=== PATIENT | female | born 1990 | race Caucasian/White ===

== ENCOUNTER 2016-10-13 12:33 | Inpatient (IN) | payer MEDICARE, OTHER ==
[2016-10-13 13:41] VITALS: BMI 30.1
--- NOTE | 2016-10-13 16:03 | HP ---
COWS - Scale Resting Pulse: 2= [place] 101-120 Sweatin=Flushed/Facial Moisture Restless Observation: 3= Extraneous Movement Pupil Size: 2= Moderately Dilated Bone or Joint Aches: 2= Severe Diffuse Aches Runny Nose/ Eye Tearin= Runny Nose/Eyes GI Upset > 30mins: 3= Vomiting/Diarrhea Tremor Observation: 2= Slight Tremor Visible Yawning Observation: 2= >3x During Session Anxiety or Irritability: 2=Irritable/Anxious Goose Flesh Skin: 0=Smooth Skin COWS Score: 22 Admission ROS S - HPI Chief Complaint: i need help to stop using percocet Allergies/Adverse Reactions: Allergies Allergy/AdvReac Type Severity Reaction Status Date / Time No Known Allergies Allergy Verified 10/13/16 15:20 History of Present Illness: this 26 years old female with percocet dependence,withdrawal symptom,never been in detox before asthma depression insomnia nicotine dependence Exam Limitations: No Limitations - Ebola screening Have you traveled outside of the country in the last 21 days: No Have you been sick,other than usual withdrawal symptoms: No - Review of Systems Constitutional: Chills, Loss of Appetite, Malaise, Night Sweats, Changes in sleep EENT: reports: Tearing, Nose Congestion Respiratory: reports: No Symptoms reported Cardiac: reports: Palpitations GI: reports: Diarrhea, Nausea, Poor Appetite : reports: No Symptoms Reported Musculoskeletal: reports: Joint Pain, Muscle Pain, Muscle Weakness, Joint Stiffness Integumentary: reports: Dryness Neuro: reports: Headache, Tremors Endocrine: reports: No Symptoms Reported Hematology: reports: No Symptoms Reported Psychiatric: reports: No Sypmtoms Reported, Judgement Intact, Mood/Affect Appropiate, Orientated x3, Depressed Patient History - Patient Medical History Hx Anemia: No Hx Asthma: Yes (on albuterol inhaler) Hx Chronic Obstructive Pulmonary Disease (COPD): No Hx Cancer: No Hx Cardiac Disorders: No Hx Congestive Heart Failure: No Hx Hypertension: No Hx Hypercholesterolemia: No Hx Pacemaker: No HX Cerebrovascular Accident: No Hx Seizures: No Hx Dementia: No Hx Diabetes: No Hx Gastrointestinal Disorders: No Hx Liver Disease: No Hx Genitourinary Disorders: No Hx Sexually Transmitted Disorders: No Hx Renal Disease (ESRD): No Hx Thyroid Disease: No Hx Human Immunodeficiency Virus (HIV): No (last 2015 negative) Hx Hepatitis C: No Hx Depression: Yes Hx Suicide Attempt: No Hx Bipolar Disorder: No Hx Schizophrenia: No Other Medical History: no suicidal,no homicidal - Patient Surgical History Past Surgical History: No Hx Neurologic Surgery: No Hx Cataract Extraction: No Hx Cardiac Surgery: No Hx Lung Surgery: No Hx Breast Surgery: Yes (breast reductionin 2016) Hx Breast Biopsy: No Hx Abdominal Surgery: No Hx Appendectomy: No Hx Cholecystectomy: No Hx Genitourinary Surgery: No Hx Section: No Hx Orthopedic Surgery: No Anesthesia Reaction: No - PPD History Previous Implant?: Yes Documented Results: Negative w/o proof Implanted On Prior R Admission?: No PPD to be Administered?: Yes - Reproductive History Last Menstrual Period: 09/16/16 Patient : No - Smoking Cessation Smoking history: Current every day smoker Have you smoked in the past 12 months: Yes Aproximately how many cigarettes per day: 2 Hx Chewing Tobacco Use: No Initiated information on smoking cessation: Yes 'Breaking Loose' booklet given: 10/13/16 - Substance & Tx. History Hx Alcohol Use: No Hx Substance Use: Yes Substance Use Type: Opiates Hx Substance Use Treatment: No - Substances Abused Percocet Route: Oral Frequency: Daily Amount used: 10 tabs. (10 mg.) Age of first use: 25 Date of Last Use: 10/13/16 Family Disease History - Family Disease History Family History: Denies Admission Physical Exam S - Vital Signs Vital Signs: Vital Signs - 24 hr 10/13/16 13:37 Temperature 97.0 F L Pulse Rate 111 H Respiratory 20 Rate Blood Pressure 112/82 - Physical General Appearance: Yes: Tremorous, Irritable, Sweating, Anxious HEENTM: Yes: Hearing grossly Normal, ZAY, Pharynx Normal Respiratory: Yes: Lungs Clear, Normal Breath Sounds, No Respiratory Distress Neck: Yes: Within Normal Limits, Supple, Trachea in good position Breast: Yes: Breast Exam Deferred Cardiology: Yes: Tachycardia Abdominal: Yes: Within Normal Limits, Normal Bowel Sounds, Non Tender, Flat, Soft Genitourinary: Yes: Within Normal Limits Back: Yes: Muscle Spasm Musculoskeletal: Yes: Back pain, Joint Stiffness, Muscle Pain, Muscle weakness Extremities: Yes: Tremors Neurological: Yes: washcloth folder II-XII NML intact, Fully Oriented, Alert, Motor Strength 5/5 Integumentary: Yes: Dry Lymphatic: Yes: Within Normal Limits - Diagnostic (1) Opioid dependence with withdrawal Current Visit: Yes Status: Acute (2) Asthma Current Visit: Yes Status: Acute (3) Depression Current Visit: Yes Status: Acute (4) Insomnia Current Visit: Yes Status: Acute (5) Nicotine dependence Current Visit: Yes Status: Acute Cleared for Admission [facility] - Detox or Rehab [facility] Level of Care: Medically Managed Detox Regimen/Protocol: Methadone [facility] Breath Alcohol Content Breath Alcohol Content: 0 Urine Pregancy Test - Result Urine Test Results: Negative- NO Line Present Urine Drug Screen - Results Drug Screen Negative: No Urine Drug Screen Results: OXY-Oxycodone
[2016-10-13] MEDS ORDERED: MAG HYDROX/AL HYDROX/SIMETH 30 ML UNIT-DOSE CUP PO PRN (16:12)
[2016-10-13] MEDS ORDERED: P-EPHED 60MG/TRIPROLIDI 2.5MG TABLET PO PRN (16:12)
[2016-10-13] MEDS ORDERED: guaiFENesin/D-METHORPHAN HB 10 ML UNIT-DOSE CUPS PO PRN (16:12)
[2016-10-13] MEDS ORDERED: IBUPROFEN 400 MG TABLET (FP) PO PRN (16:12)
[2016-10-13] MEDS ORDERED: MAGNESIUM HYDROX 2400MG/30ML ORAL SUSPENSION 30 ML CUP PO PRN (16:12)
[2016-10-13] MEDS ORDERED: MAGNESIUM CITRATE 300 ML BOTTLE PO PRN (16:12)
[2016-10-13] MEDS ORDERED: MENTHOL/PHENOL 1 EACH UD MM PRN (16:12)
[2016-10-13] MEDS ORDERED: LOPERAMIDE HCL 2 MG CAPSULE PO PRN (16:12)
[2016-10-13] MEDS ORDERED: ACETAMINOPHEN 325 MG TABLET (FP) PO PRN (16:12)
[2016-10-13] MEDS ORDERED: METHADONE HCL 10 MG TABLET (FOR DETOX USE ONLY) PO ONE ×2 (16:45→23:00)
[2016-10-13] MEDS: diazePAM 5 MG TABLET PO PRN ×2 (17:05→20:57)
[2016-10-13 18:53] LABS: URINE APPEARANCE CLEAR; URINE BILIRUBIN NEGATIVE (NEGATIVE); URINE BLOOD NEGATIVE (NEGATIVE); URINE COLOR LTYELLOW; URINE GLUCOSE (UA) NEGATIVE (NEGATIVE); URINE KETONE NEGATIVE (NEGATIVE); URINE LEUK ESTERASE NEGATIVE (NEGATIVE); URINE NITRITE NEGATIVE (NEGATIVE); URINE PROTEIN NEGATIVE (NEGATIVE); URINE UROBILINOGEN NEGATIVE E.U./dl (0.2-1.0)
[2016-10-13] MEDS: cloNIDine HCL 0.1 MG TABLET PO SCH (22:19)
[2016-10-13] MEDS: THIAMINE HCL 100 MG TABLET (FP) PO SCH (22:19)
[2016-10-13] MEDS: CYCLOBENZAPRINE HCL 10 MG TABLET (FP) PO PRN (22:19)
[2016-10-13] MEDS: diphenhydrAMINE HCL 50 MG CAPSULE PO PRN (22:19)
[2016-10-14] MEDS: diazePAM 5 MG TABLET PO PRN ×2 (08:50→19:41)
[2016-10-14] MEDS ORDERED: METHADONE HCL 10 MG TABLET (FOR DETOX USE ONLY) PO ONE (10:00)
[2016-10-14 10:11] LABS: MCH 31.1 pg (25.7-33.7); MCHC 33.1 g/dl (32.0-36.0); MEAN CELL VOLUME 94.2 fl (80-96); MEAN PLT VOLUME 9.3 fl (7.5-11.1); PLATELET COUNT 304 K/MM3 (134-434); RDW 12.5 % (11.6-15.6)
[2016-10-14] MEDS: cloNIDine HCL 0.1 MG TABLET PO SCH ×2 (10:19→22:13)
[2016-10-14] MEDS: PRENATAL VITAMINS W/ FOLIC ACID TABLET (FP) PO SCH (10:19)
--- NOTE | 2016-10-14 10:24 | EKG ---
Test Reason : Blood Pressure : / mmHG Vent. Rate : 085 BPM Atrial Rate : 085 BPM P-R Int : 142 ms QRS Dur : 088 ms QT Int : 370 ms P-R-T Axes : 017 056 007 degrees QTc Int : 440 ms NORMAL SINUS RHYTHM WITH SINUS ARRHYTHMIA NONSPECIFIC ST ABNORMALITY NO PREVIOUS ECGS AVAILABLE Confirmed by TAWANA MCKEON MD ([id number]) on 10/14/2016 10:24:01 AM Referred By: Confirmed By:TAWANA MCKEON MD
[2016-10-14 12:04] LABS: ALBUMIN 3.7 g/dl (3.4-5.0); ALK PHOS 71 U/L (45-117); ANION GAP 9 (8-16); BILIRUBIN,TOTAL 0.4 mg/dL (0.2-1.0); CALCIUM 9.1 mg/dL (8.5-10.1); CO2 26 mmol/L (21-32); CREATININE 0.8 mg/dL (0.55-1.02); GLUCOSE,RANDOM 95 mg/dL (74-106); SGOT/AST 14 U/L (15-37); SGPT/ALT 20 U/L (12-78); TOT PROT 7.2 g/dl (6.4-8.2)
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
--- NOTE | 2016-10-14 13:51 | PN ---
S COWS - Scale Resting Pulse: 0= [place] 80 or Below Sweatin= Chills/Flushing Restless Observation: 3= Extraneous Movement Pupil Size: 1= Pupils >than Normal Bone or Joint Aches: 2= Severe Diffuse Aches Runny Nose/ Eye Tearin= Runny Nose/Eyes GI Upset > 30mins: 3= Vomiting/Diarrhea Tremor Observation of Outstretched Hands: 2= Slight Tremor Visible Yawning Observation: 1= 1-2x During Session Anxiety or Irritability: 2=Irritable/Anxious Goose Flesh Skin: 0=Smooth Skin COWS Score: 17 S Progress Note (SOAP) Subjective: ALERT,IRRITABLE,ANXIOUS,INTERRUPTED SLEEP,TREMOR,PAIN IN THE BODY AND ABCK Objective: 10/14/16 13:49 Vital Signs Temperature 96.3 F L 10/14/16 10:30 Pulse Rate 81 10/14/16 10:30 Respiratory Rate 18 10/14/16 10:30 Blood Pressure 105/68 10/14/16 10:30 O2 Sat by Pulse Oximetry (%) EKG NSR WITH SINUS ARRHYTHMIA NORMAL ECG Laboratory Last Values WBC 11.0 K/mm3 (4.0-10.0) H 10/14/16 06:00 RBC 4.68 M/mm3 (3.60-5.2) 10/14/16 06:00 Hgb 14.6 GM/dL (10.7-15.3) 10/14/16 06:00 Hct 44.1 % (32.4-45.2) 10/14/16 06:00 MCV 94.2 fl (80-96) 10/14/16 06:00 MCHC 33.1 g/dl (32.0-36.0) 10/14/16 06:00 RDW 12.5 % (11.6-15.6) 10/14/16 06:00 Plt Count 304 K/MM3 (134-434) 10/14/16 06:00 MPV 9.3 fl (7.5-11.1) 10/14/16 06:00 Sodium 139 mmol/L (136-145) 10/14/16 06:00 Potassium 4.1 mmol/L (3.5-5.1) 10/14/16 06:00 Chloride 104 mmol/L (98-107) 10/14/16 06:00 Carbon Dioxide 26 mmol/L (21-32) 10/14/16 06:00 Anion Gap 9 (8-16) 10/14/16 06:00 BUN 17 mg/dL (7-18) 10/14/16 06:00 Creatinine 0.8 mg/dL (0.55-1.02) 10/14/16 06:00 Creat Clearance w eGFR > 60 (>60) 10/14/16 06:00 Random Glucose 95 mg/dL (74-106) 10/14/16 06:00 Calcium 9.1 mg/dL (8.5-10.1) 10/14/16 06:00 Total Bilirubin 0.4 mg/dL (0.2-1.0) 10/14/16 06:00 AST 14 U/L (15-37) L 10/14/16 06:00 ALT 20 U/L (12-78) 10/14/16 06:00 Alkaline Phosphatase 71 U/L (45-117) 10/14/16 06:00 Total Protein 7.2 g/dl (6.4-8.2) 10/14/16 06:00 Albumin 3.7 g/dl (3.4-5.0) 10/14/16 06:00 Urine Color Ltyellow 10/13/16 18:00 Urine Appearance Clear 10/13/16 18:00 Urine pH 6.0 (5.0-8.0) 10/13/16 18:00 Ur Specific [place] 1.027 (1.001-1.035) 10/13/16 18:00 Urine Protein Negative (NEGATIVE) 10/13/16 18:00 Urine Glucose (UA) Negative (NEGATIVE) 10/13/16 18:00 Urine Ketones Negative (NEGATIVE) 10/13/16 18:00 Urine Blood Negative (NEGATIVE) 10/13/16 18:00 Urine Nitrite Negative (NEGATIVE) 10/13/16 18:00 Urine Bilirubin Negative (NEGATIVE) 10/13/16 18:00 Urine Urobilinogen Negative E.U./dl (0.2-1.0) 10/13/16 18:00 Ur Leukocyte Esterase Negative (NEGATIVE) 10/13/16 18:00 RPR Titer Nonreactive (NONREACTIVE) 10/14/16 06:00 Assessment: 10/14/16 13:50 WITHDRAWAL SYMPTOM Plan: CONTINUE DETOX,ENCOURAGE ORAL FLUID
[2016-10-14] MEDS: MIRTAZAPINE 15 MG TABLET (FP) PO SCH (22:13)
[2016-10-14] MEDS: THIAMINE HCL 100 MG TABLET (FP) PO SCH (22:14)
[2016-10-15] MEDS: diphenhydrAMINE HCL 50 MG CAPSULE PO PRN (01:04)
[2016-10-15] MEDS: diazePAM 5 MG TABLET PO PRN ×4 (05:37→22:19)
[2016-10-15] MEDS ORDERED: METHADONE HCL 5 MG TABLET (FOR DETOX USE ONLY) PO ONE (10:00)
[2016-10-15] MEDS: cloNIDine HCL 0.1 MG TABLET PO SCH ×2 (10:36→22:18)
[2016-10-15] MEDS: PRENATAL VITAMINS W/ FOLIC ACID TABLET (FP) PO SCH (10:36)
[2016-10-15] MEDS: SERTRALINE HCL 50 MG TABLET (FP) PO SCH (10:37)
--- NOTE | 2016-10-15 12:39 | PN ---
S COWS - Scale Resting Pulse: 0= [place] 80 or Below Sweatin= Chills/Flushing Restless Observation: 3= Extraneous Movement Pupil Size: 1= Pupils >than Normal Bone or Joint Aches: 2= Severe Diffuse Aches Runny Nose/ Eye Tearin= Runny Nose/Eyes GI Upset > 30mins: 2= Nausea/Diarrhea Tremor Observation of Outstretched Hands: 2= Slight Tremor Visible Yawning Observation: 1= 1-2x During Session Anxiety or Irritability: 2=Irritable/Anxious Goose Flesh Skin: 0=Smooth Skin COWS Score: 16 S Progress Note (SOAP) Subjective: ALERT,IRRITABLE,ANXIOUS,INTERRUPTED SLEEP,TREMOR,PAIN IN THE BODY AND BACK Objective: 10/15/16 12:37 Vital Signs Temperature 97.8 F 10/15/16 10:13 Pulse Rate 81 10/15/16 10:13 Respiratory Rate 16 10/15/16 10:13 Blood Pressure 100/64 10/15/16 10:13 O2 Sat by Pulse Oximetry (%) 10/15/16 12:38 Laboratory Last Values WBC 11.0 K/mm3 (4.0-10.0) H 10/14/16 06:00 RBC 4.68 M/mm3 (3.60-5.2) 10/14/16 06:00 Hgb 14.6 GM/dL (10.7-15.3) 10/14/16 06:00 Hct 44.1 % (32.4-45.2) 10/14/16 06:00 MCV 94.2 fl (80-96) 10/14/16 06:00 MCHC 33.1 g/dl (32.0-36.0) 10/14/16 06:00 RDW 12.5 % (11.6-15.6) 10/14/16 06:00 Plt Count 304 K/MM3 (134-434) 10/14/16 06:00 MPV 9.3 fl (7.5-11.1) 10/14/16 06:00 Sodium 139 mmol/L (136-145) 10/14/16 06:00 Potassium 4.1 mmol/L (3.5-5.1) 10/14/16 06:00 Chloride 104 mmol/L (98-107) 10/14/16 06:00 Carbon Dioxide 26 mmol/L (21-32) 10/14/16 06:00 Anion Gap 9 (8-16) 10/14/16 06:00 BUN 17 mg/dL (7-18) 10/14/16 06:00 Creatinine 0.8 mg/dL (0.55-1.02) 10/14/16 06:00 Creat Clearance w eGFR > 60 (>60) 10/14/16 06:00 Random Glucose 95 mg/dL (74-106) 10/14/16 06:00 Calcium 9.1 mg/dL (8.5-10.1) 10/14/16 06:00 Total Bilirubin 0.4 mg/dL (0.2-1.0) 10/14/16 06:00 AST 14 U/L (15-37) L 10/14/16 06:00 ALT 20 U/L (12-78) 10/14/16 06:00 Alkaline Phosphatase 71 U/L (45-117) 10/14/16 06:00 Total Protein 7.2 g/dl (6.4-8.2) 10/14/16 06:00 Albumin 3.7 g/dl (3.4-5.0) 10/14/16 06:00 Urine Color Ltyellow 10/13/16 18:00 Urine Appearance Clear 10/13/16 18:00 Urine pH 6.0 (5.0-8.0) 10/13/16 18:00 Ur Specific [place] 1.027 (1.001-1.035) 10/13/16 18:00 Urine Protein Negative (NEGATIVE) 10/13/16 18:00 Urine Glucose (UA) Negative (NEGATIVE) 10/13/16 18:00 Urine Ketones Negative (NEGATIVE) 10/13/16 18:00 Urine Blood Negative (NEGATIVE) 10/13/16 18:00 Urine Nitrite Negative (NEGATIVE) 10/13/16 18:00 Urine Bilirubin Negative (NEGATIVE) 10/13/16 18:00 Urine Urobilinogen Negative E.U./dl (0.2-1.0) 10/13/16 18:00 Ur Leukocyte Esterase Negative (NEGATIVE) 10/13/16 18:00 RPR Titer Nonreactive (NONREACTIVE) 10/14/16 06:00 Assessment: 10/15/16 12:38 WITHDRAWAL SYMPTOM Plan: CONTINUE DETOX
[2016-10-15] MEDS: ZOLPIDEM TARTRATE 5 MG TABLET PO PRN (22:18)
[2016-10-15] MEDS: THIAMINE HCL 100 MG TABLET (FP) PO SCH (22:19)
[2016-10-15] MEDS: MIRTAZAPINE 15 MG TABLET (FP) PO SCH (22:19)
[2016-10-16] MEDS ORDERED: METHADONE HCL 5 MG TABLET (FOR DETOX USE ONLY) PO ONE (10:00)
[2016-10-16] MEDS: PRENATAL VITAMINS W/ FOLIC ACID TABLET (FP) PO SCH (10:28)
[2016-10-16] MEDS: cloNIDine HCL 0.1 MG TABLET PO SCH ×2 (10:28→22:11)
[2016-10-16] MEDS: SERTRALINE HCL 50 MG TABLET (FP) PO SCH (10:28)
[2016-10-16] MEDS: diazePAM 5 MG TABLET PO PRN ×2 (10:29→14:27)
[2016-10-16] MEDS ORDERED: BISACODYL 5 MG TABLET.DR (FP) PO ONE (12:15)
--- NOTE | 2016-10-16 16:29 | PN ---
[facility] Progress Note (SOAP) Subjective: Anxious, sweating, interrupted sleep; c/o constipation x 2 days Objective: 10/16/16 16:27 Last Vital Signs Temp Pulse Resp BP Pulse Ox 98.1 F 93 H 18 93/56 10/16/16 14:07 10/16/16 14:07 10/16/16 14:07 10/16/16 14:07 Noted with low blood pressure Laboratory Tests 10/13/16 10/14/16 10/14/16 18:00 06:00 06:00 WBC 11.0 H RBC 4.68 Hgb 14.6 Hct 44.1 MCV 94.2 MCHC 33.1 RDW 12.5 Plt Count 304 MPV 9.3 Sodium 139 Potassium 4.1 Chloride 104 Carbon Dioxide 26 Anion Gap 9 BUN 17 Creatinine 0.8 Creat Clearance w eGFR > 60 Random Glucose 95 Calcium 9.1 Total Bilirubin 0.4 AST 14 L ALT 20 Alkaline Phosphatase 71 Total Protein 7.2 Albumin 3.7 Urine Color Ltyellow Urine Appearance Clear Urine pH 6.0 Ur Specific [place] 1.027 Urine Protein Negative Urine Glucose (UA) Negative Urine Ketones Negative Urine Blood Negative Urine Nitrite Negative Urine Bilirubin Negative Urine Urobilinogen Negative Ur Leukocyte Esterase Negative RPR Titer 10/14/16 06:00 WBC RBC Hgb Hct MCV MCHC RDW Plt Count MPV Sodium Potassium Chloride Carbon Dioxide Anion Gap BUN Creatinine Creat Clearance w eGFR Random Glucose Calcium Total Bilirubin AST ALT Alkaline Phosphatase Total Protein Albumin Urine Color Urine Appearance Urine pH Ur Specific [place] Urine Protein Urine Glucose (UA) Urine Ketones Urine Blood Urine Nitrite Urine Bilirubin Urine Urobilinogen Ur Leukocyte Esterase RPR Titer Nonreactive Labs noted Assessment: 10/16/16 16:27 Withdrawal symptoms Noted with hypotension Plan: Continue detox Hypotension: asymptomatic, encouraged to drink lots of water
[2016-10-16] MEDS: hydrOXYzine PAMOATE 50 MG CAPSULE (FP) PO PRN (18:11)
[2016-10-16] MEDS ORDERED: NICOTINE POLACRILEX 2 MG GUM BUC PRN (18:41)
[2016-10-16] MEDS ORDERED: NICOTINE 21 MG/24 HOURS TOPICAL PATCH TD SCH (18:45)
[2016-10-16] MEDS: NICOTINE 21 MG/24 HOURS TOPICAL PATCH TD SCH (21:08)
[2016-10-16] MEDS: ZOLPIDEM TARTRATE 5 MG TABLET PO PRN (22:10)
[2016-10-16] MEDS: MIRTAZAPINE 15 MG TABLET (FP) PO SCH (22:11)
[2016-10-16] MEDS: CYCLOBENZAPRINE HCL 10 MG TABLET (FP) PO PRN (22:11)
[2016-10-16] MEDS: THIAMINE HCL 100 MG TABLET (FP) PO SCH (22:11)
[2016-10-17] MEDS ORDERED: METHADONE HCL 10 MG TABLET (FOR DETOX USE ONLY) PO ONE (10:00)
[2016-10-17] MEDS: cloNIDine HCL 0.1 MG TABLET PO SCH ×2 (10:20→22:08)
[2016-10-17] MEDS: PRENATAL VITAMINS W/ FOLIC ACID TABLET (FP) PO SCH (10:20)
[2016-10-17] MEDS: hydrOXYzine PAMOATE 50 MG CAPSULE (FP) PO PRN ×3 (10:21→22:08)
[2016-10-17] MEDS: SERTRALINE HCL 50 MG TABLET (FP) PO SCH (10:21)
[2016-10-17] MEDS: NICOTINE 21 MG/24 HOURS TOPICAL PATCH TD SCH (10:23)
[2016-10-17] MEDS ORDERED: COLLOIDAL OATMEAL 1 BAR EACH TP PRN (11:52)
--- NOTE | 2016-10-17 11:56 | PN ---
[facility] Progress Note (SOAP) Subjective: interrupted sleep, rash itchy skin with soap Objective: 10/17/16 11:54 Vital Signs Temperature 98.1 F 10/17/16 10:00 Pulse Rate 81 10/17/16 10:00 Respiratory Rate 20 10/17/16 10:00 Blood Pressure 109/77 10/17/16 10:00 O2 Sat by Pulse Oximetry (%) Laboratory Tests 10/13/16 10/14/16 10/14/16 18:00 06:00 06:00 WBC 11.0 H RBC 4.68 Hgb 14.6 Hct 44.1 MCV 94.2 MCHC 33.1 RDW 12.5 Plt Count 304 MPV 9.3 Sodium 139 Potassium 4.1 Chloride 104 Carbon Dioxide 26 Anion Gap 9 BUN 17 Creatinine 0.8 Creat Clearance w eGFR > 60 Random Glucose 95 Calcium 9.1 Total Bilirubin 0.4 AST 14 L ALT 20 Alkaline Phosphatase 71 Total Protein 7.2 Albumin 3.7 Urine Color Ltyellow Urine Appearance Clear Urine pH 6.0 Ur Specific [place] 1.027 Urine Protein Negative Urine Glucose (UA) Negative Urine Ketones Negative Urine Blood Negative Urine Nitrite Negative Urine Bilirubin Negative Urine Urobilinogen Negative Ur Leukocyte Esterase Negative RPR Titer 10/14/16 06:00 WBC RBC Hgb Hct MCV MCHC RDW Plt Count MPV Sodium Potassium Chloride Carbon Dioxide Anion Gap BUN Creatinine Creat Clearance w eGFR Random Glucose Calcium Total Bilirubin AST ALT Alkaline Phosphatase Total Protein Albumin Urine Color Urine Appearance Urine pH Ur Specific [place] Urine Protein Urine Glucose (UA) Urine Ketones Urine Blood Urine Nitrite Urine Bilirubin Urine Urobilinogen Ur Leukocyte Esterase RPR Titer Nonreactive pt aox3 in nad ambulating Assessment: 10/17/16 11:54 withdrawal sx's alergy to soap Plan: cont.detox increase fluids aveeno soap benadryrl q 6 h d/c in am
[2016-10-17] MEDS: diphenhydrAMINE HCL 25 MG CAPSULE (FP) PO PRN ×2 (12:04→18:53)
[2016-10-17] MEDS: MIRTAZAPINE 15 MG TABLET (FP) PO SCH (22:08)
[2016-10-17] MEDS: CYCLOBENZAPRINE HCL 10 MG TABLET (FP) PO PRN (22:08)
[2016-10-17] MEDS: ZOLPIDEM TARTRATE 5 MG TABLET PO PRN (22:08)
[2016-10-17] MEDS: THIAMINE HCL 100 MG TABLET (FP) PO SCH (22:09)
[2016-10-18] MEDS ORDERED: METHADONE HCL 5 MG TABLET (FOR DETOX USE ONLY) PO ONE (06:00)
[2016-10-18] MEDS: hydrOXYzine PAMOATE 50 MG CAPSULE (FP) PO PRN ×2 (06:03→10:11)
--- NOTE | 2016-10-18 09:12 | DS ---
[facility] Detox Discharge Summary Admission Date: 10/13/16 Discharge Date: 10/18/16 - History Present History: Opioid Dependence - Physical Exam Results Vital Signs: Vital Signs Temperature 98.2 F 10/18/16 06:04 Pulse Rate 77 10/18/16 06:04 Respiratory Rate 16 10/18/16 06:04 Blood Pressure 88/53 10/18/16 06:04 O2 Sat by Pulse Oximetry (%) - Treatment Hospital Course: Detox Protocol Followed, Detoxed Safely, Responded well, Discharged Condition Good, Rehab Referral Accepted - Medication Discharge Medications: Ambulatory Orders Levalbuterol Tartrate [Xopenex Hfa] 2 inh IH BID PRN 10/13/16 Sertraline HCl [Zoloft -] 50 mg PO DAILY #30 tablet 10/14/16 - Diagnosis (1) Depression Current Visit: Yes Status: Chronic (2) Insomnia Current Visit: Yes Status: Acute (3) Nicotine dependence Current Visit: Yes Status: Chronic Qualifiers: Nicotine product type: cigarettes Substance use status: uncomplicated Qualified Code(s): F17.210 - Nicotine dependence, cigarettes, uncomplicated (4) Opioid dependence with withdrawal Current Visit: Yes Status: Chronic (5) Asthma Current Visit: Yes Status: Chronic Qualifiers: Asthma complication type: uncomplicated (6) Post traumatic stress disorder (PTSD) Current Visit: Yes Status: Chronic - AMA Did Patient Leave Against Medical Advice: No
[2016-10-18] MEDS: PRENATAL VITAMINS W/ FOLIC ACID TABLET (FP) PO SCH (10:10)
[2016-10-18] MEDS: cloNIDine HCL 0.1 MG TABLET PO SCH (10:10)
[2016-10-18] MEDS: NICOTINE 21 MG/24 HOURS TOPICAL PATCH TD SCH (10:10)
[2016-10-18] MEDS: SERTRALINE HCL 50 MG TABLET (FP) PO SCH (10:10)
[2016-10-18 14:33] VITALS: BP 124/80; PULSE 98; TEMP 98.2
== END 2016-10-18 14:45 | disposition other institution (70) | DRG 897 ==
LOC: YASAS 12:33 → Y6N 15:28
PROVIDERS: ADMIT Internal Medicine Addiction Medicine; ATTEND Internal Medicine Addiction Medicine
PROC: HZ2ZZZZ Detoxification Services for Substance Abuse Treatment (ICD-10-PCS; principal; 2016-10-18)
DX: F11.23 Opioid dependence with withdrawal (principal); F17.210 Nicotine dependence, cigarettes, uncomplicated; F32.9 Major depressive disorder, single episode, unspecified; F43.10 Post-traumatic stress disorder, unspecified; G47.00 Insomnia, unspecified; J45.909 Unspecified asthma, uncomplicated
CPT/HCPCS: 36415; 80053; 81003; 85027; 86593; 93005; 93010

== ENCOUNTER 2016-10-18 14:29 | Inpatient (IN) | payer MEDICARE, OTHER ==
[2016-10-18] MEDS ORDERED: MAGNESIUM HYDROX 2400MG/30ML ORAL SUSPENSION 30 ML CUP PO PRN (15:06)
[2016-10-18] MEDS ORDERED: MENTHOL/PHENOL 1 EACH UD MM PRN (15:06)
[2016-10-18] MEDS ORDERED: LOPERAMIDE HCL 2 MG CAPSULE PO PRN (15:06)
[2016-10-18] MEDS ORDERED: guaiFENesin/D-METHORPHAN HB 10 ML UNIT-DOSE CUPS PO PRN (15:06)
[2016-10-18] MEDS ORDERED: NICOTINE POLACRILEX 2 MG GUM BUC PRN (15:06)
[2016-10-18] MEDS ORDERED: ACETAMINOPHEN 325 MG TABLET (FP) PO PRN (15:06)
[2016-10-18] MEDS ORDERED: MAG HYDROX/AL HYDROX/SIMETH 30 ML UNIT-DOSE CUP PO PRN (15:06)
[2016-10-18] MEDS ORDERED: P-EPHED 60MG/TRIPROLIDI 2.5MG TABLET PO PRN (15:06)
[2016-10-18] MEDS ORDERED: IBUPROFEN 400 MG TABLET (FP) PO PRN (15:06)
[2016-10-18] MEDS ORDERED: MAGNESIUM CITRATE 300 ML BOTTLE PO PRN (15:06)
[2016-10-18] MEDS ORDERED: ALBUTEROL SO4 6.7 GM HFA INHALER IH PRN (15:09)
--- NOTE | 2016-10-18 15:12 | HP ---
[facility] Rehab Assess/Revision - Admission History Admitted to Rehab from: [facility] [address] [place] Date of Admission to Rehab: 10/18/16 - Findings Detox History & Physical reviewed: Yes Concur with findings: Yes Comments/Additional Findings: for rehab as protocol
[2016-10-18] MEDS: hydrOXYzine PAMOATE 50 MG CAPSULE (FP) PO PRN ×2 (15:38→21:30)
[2016-10-18] MEDS: THIAMINE HCL 100 MG TABLET (FP) PO SCH (21:27)
[2016-10-18] MEDS: diphenhydrAMINE HCL 50 MG CAPSULE PO PRN ×2 (21:27→23:23)
[2016-10-18] MEDS ORDERED: MIRTAZAPINE 15 MG TABLET (FP) PO SCH (22:00)
[2016-10-19] MEDS: hydrOXYzine PAMOATE 50 MG CAPSULE (FP) PO PRN ×4 (06:36→21:28)
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
[2016-10-19] MEDS ORDERED: hydrOXYzine PAMOATE 50 MG CAPSULE (FP) PO STA (09:19)
[2016-10-19] MEDS ORDERED: SERTRALINE HCL 50 MG TABLET (FP) PO SCH (10:00)
[2016-10-19] MEDS ORDERED: NICOTINE 7 MG/24 HOURS TOPICAL PATCH TD SCH (10:00)
[2016-10-19] MEDS ORDERED: PRENATAL VITAMINS W/ FOLIC ACID TABLET (FP) PO SCH (10:00)
[2016-10-19] MEDS: THIAMINE HCL 100 MG TABLET (FP) PO SCH (21:26)
[2016-10-19] MEDS ORDERED: SUVOREXANT 10 MG TABLET PO PRN (22:00)
[2016-10-19] MEDS ORDERED: MIRTAZAPINE 15 MG TABLET (FP) PO SCH (22:00)
[2016-10-20 06:56] VITALS: BP 102/77; PULSE 83; TEMP 98.6
[2016-10-20] MEDS: hydrOXYzine PAMOATE 50 MG CAPSULE (FP) PO PRN (08:50)
--- NOTE | 2016-10-20 10:28 | PN ---
S Progress Note Note: Was called by nurse due to the patient decision to leave treatment AMA, patient refused to wait to be seen by undersigned. Meanwhile scripts transferred to the patient's pharmacy.
== END 2016-10-20 09:25 | disposition left against medical advice (07) | DRG 894 ==
LOC: YASAS 14:29 → Y3E 14:39
PROVIDERS: ADMIT Psychiatry & Neurology Psychiatry; ATTEND Psychiatry & Neurology Psychiatry
PROC: HZ42ZZZ Group Counseling for Substance Abuse Treatment, Cognitive-Behavioral (ICD-10-PCS; principal; 2016-10-18)
DX: F11.20 Opioid dependence, uncomplicated (principal); F17.210 Nicotine dependence, cigarettes, uncomplicated; F43.10 Post-traumatic stress disorder, unspecified; J45.909 Unspecified asthma, uncomplicated

== ENCOUNTER 2017-02-14 10:55 | Inpatient (IN) | payer MEDICARE, OTHER ==
[2017-02-14 11:40] VITALS: BMI 30.2
--- NOTE | 2017-02-14 13:50 | HP ---
COWS - Scale Resting Pulse: 2= CO 101-120 Sweatin=Flushed/Facial Moisture Restless Observation: 3= Extraneous Movement Pupil Size: 2= Moderately Dilated Bone or Joint Aches: 2= Severe Diffuse Aches Runny Nose/ Eye Tearin= Runny Nose/Eyes GI Upset > 30mins: 3= Vomiting/Diarrhea Tremor Observation: 2= Slight Tremor Visible Yawning Observation: 2= >3x During Session Anxiety or Irritability: 2=Irritable/Anxious Goose Flesh Skin: 0=Smooth Skin COWS Score: 22 Admission ROS S - HPI Chief Complaint: i dequan help to stop using percocet Allergies/Adverse Reactions: Allergies Allergy/AdvReac Type Severity Reaction Status Date / Time No Known Allergies Allergy Verified 02/14/17 13:38 History of Present Illness: this 26 years old female with percocet dependence,seeking detox,last treatment 10/13/16 to 10/18/16 anxiety,depression asthma nicotine dependence insomnia Exam Limitations: No Limitations - Ebola screening Have you traveled outside of the country in the last 21 days: No Have you been sick,other than usual withdrawal symptoms: No - Review of Systems Constitutional: Chills, Diaphoresis, Malaise, Night Sweats, Changes in sleep, Weakness EENT: reports: Tearing, Nose Congestion Respiratory: reports: No Symptoms reported Cardiac: reports: Palpitations GI: reports: Blood Streaked Bowels, Diarrhea, Vomiting, Abdominal cramping : reports: No Symptoms Reported Musculoskeletal: reports: Back Pain, Muscle Pain, Joint Stiffness Integumentary: reports: Dryness Neuro: reports: Headache, Tremors Endocrine: reports: No Symptoms Reported Hematology: reports: No Symptoms Reported Psychiatric: reports: Anxious, Depressed Patient History - Patient Medical History Hx Anemia: No Hx Asthma: Yes (on albuterol inhale) Hx Chronic Obstructive Pulmonary Disease (COPD): No Hx Cancer: No Hx Cardiac Disorders: No Hx Congestive Heart Failure: No Hx Hypertension: No Hx Hypercholesterolemia: No Hx Pacemaker: No HX Cerebrovascular Accident: No Hx Seizures: No Hx Dementia: No Hx Diabetes: No Hx Gastrointestinal Disorders: No Hx Liver Disease: No Hx Genitourinary Disorders: No Hx Sexually Transmitted Disorders: No Hx Renal Disease (ESRD): No Hx Thyroid Disease: No Hx Human Immunodeficiency Virus (HIV): No (last 02/06 negative) Hx Hepatitis C: No Hx Depression: Yes (anxiety) Hx Suicide Attempt: No Hx Bipolar Disorder: No Hx Schizophrenia: No Other Medical History: no suicidal,no homicidal - Patient Surgical History Past Surgical History: No Hx Neurologic Surgery: No Hx Cataract Extraction: No Hx Cardiac Surgery: No Hx Lung Surgery: No Hx Breast Surgery: Yes (breast reductionin 2015) Hx Breast Biopsy: No Hx Abdominal Surgery: No Hx Appendectomy: No Hx Cholecystectomy: No Hx Genitourinary Surgery: No Hx Section: No Hx Orthopedic Surgery: No Other Surgical History: liposuction 12/07 Anesthesia Reaction: No - PPD History Previous Implant?: Yes Documented Results: Negative w/proof Date: 10/15/16 Results: O MM PPD to be Administered?: No - Reproductive History Last Menstrual Period: 01/25/17 Patient : No - Smoking Cessation Smoking history: Current every day smoker Have you smoked in the past 12 months: Yes Aproximately how many cigarettes per day: 5 Hx Chewing Tobacco Use: No Initiated information on smoking cessation: Yes 'Breaking Loose' booklet given: 02/14/17 - Substance & Tx. History Hx Alcohol Use: No Hx Substance Use: No Substance Use Type: Opiates Hx Substance Use Treatment: Yes (last [facility] 10/13/16 to 10/18/16) - Substances Abused percocet Route: Oral Frequency: Daily Amount used: 40mg Age of first use: 24 Date of Last Use: 02/14/17 Family Disease History - Family Disease History Family History: Denies Admission Physical Exam BHS - Vital Signs Vital Signs: Vital Signs - 24 hr 02/14/17 11:37 Temperature 96.5 F L Pulse Rate 116 H Respiratory 20 Rate Blood Pressure 122/57 - Physical General Appearance: Yes: Moderate Distress, Tremorous, Irritable, Sweating, Anxious HEENTM: Yes: Nasal Congestion Respiratory: Yes: Lungs Clear, Normal Breath Sounds, No Respiratory Distress Neck: Yes: Within Normal Limits, Supple, Trachea in good position Breast: Yes: Breast Exam Deferred (history of bilateral breast reduction) Cardiology: Yes: Tachycardia Abdominal: Yes: Within Normal Limits, Normal Bowel Sounds, Non Tender, Flat, Soft Genitourinary: Yes: Within Normal Limits Back: Yes: Muscle Spasm Musculoskeletal: Yes: full range of Motion, Back pain, Muscle Pain Extremities: Yes: Normal Capillary Refill, Normal Inspection, Normal Range of Motion, Tremors Neurological: Yes: tax evaluator II-XII NML intact, Alert, Motor Strength 5/5, Normal Mood /Affect Integumentary: Yes: Dry Lymphatic: Yes: Within Normal Limits - Diagnostic (1) Insomnia Current Visit: No Status: Acute (2) Asthma Current Visit: No Status: Chronic Qualifiers: Asthma complication type: uncomplicated (3) Depression Current Visit: No Status: Chronic (4) Nicotine dependence Current Visit: No Status: Chronic Qualifiers: Nicotine product type: cigarettes Substance use status: uncomplicated Qualified Code(s): F17.210 - Nicotine dependence, cigarettes, uncomplicated (5) Opioid dependence with withdrawal Current Visit: No Status: Chronic (6) Post traumatic stress disorder (PTSD) Current Visit: No Status: Chronic (7) History of bilateral breast reduction surgery Current Visit: Yes Status: Acute Cleared for Admission [facility] - Detox or Rehab [facility] Level of Care: Medically Managed Detox Regimen/Protocol: Methadone [facility] Breath Alcohol Content Breath Alcohol Content: 0 Urine Pregancy Test - Result Urine Test Results: Negative- NO Line Present Urine Drug Screen - Results Drug Screen Negative: No Urine Drug Screen Results: TCA-Tricyclic Antidepress, OXY-Oxycodone
[2017-02-14] MEDS ORDERED: MAGNESIUM CITRATE 300 ML BOTTLE PO PRN (13:58)
[2017-02-14] MEDS ORDERED: MENTHOL/PHENOL 1 EACH UD MM PRN (13:58)
[2017-02-14] MEDS ORDERED: MAGNESIUM HYDROX 2400MG/30ML ORAL SUSPENSION 30 ML CUP PO PRN (13:58)
[2017-02-14] MEDS ORDERED: LOPERAMIDE HCL 2 MG CAPSULE PO PRN (13:58)
[2017-02-14] MEDS ORDERED: guaiFENesin/D-METHORPHAN HB 10 ML UNIT-DOSE CUPS PO PRN (13:58)
[2017-02-14] MEDS ORDERED: ACETAMINOPHEN 325 MG TABLET (FP) PO PRN (13:58)
[2017-02-14] MEDS ORDERED: P-EPHED 60MG/TRIPROLIDI 2.5MG TABLET PO PRN (13:58)
[2017-02-14] MEDS ORDERED: METHADONE HCL 10 MG TABLET (FOR DETOX USE ONLY) PO ONE ×2 (14:23→23:00)
[2017-02-14] MEDS: diazePAM 5 MG TABLET PO PRN ×2 (15:30→19:50)
[2017-02-14] MEDS: NICOTINE 14 MG/24 HOURS TOPICAL PATCH TD SCH (15:32)
[2017-02-14] MEDS: ALBUTEROL SO4 6.7 GM HFA INHALER IH PRN (19:49)
[2017-02-14] MEDS: THIAMINE HCL 100 MG TABLET (FP) PO SCH (22:33)
[2017-02-14] MEDS: diphenhydrAMINE HCL 50 MG CAPSULE PO PRN (22:33)
[2017-02-14] MEDS: MAG HYDROX/AL HYDROX/SIMETH 30 ML UNIT-DOSE CUP PO PRN (22:33)
[2017-02-14 23:26] LABS: URINE APPEARANCE SLCLOUDY; URINE BILIRUBIN NEGATIVE (NEGATIVE); URINE BLOOD NEGATIVE (NEGATIVE); URINE COLOR LTYELLOW; URINE GLUCOSE (UA) NEGATIVE (NEGATIVE); URINE KETONE NEGATIVE (NEGATIVE); URINE LEUK ESTERASE NEGATIVE (NEGATIVE); URINE NITRITE NEGATIVE (NEGATIVE); URINE PROTEIN NEGATIVE (NEGATIVE); URINE UROBILINOGEN NEGATIVE mg/dL (0.2-1.0)
[2017-02-15] MEDS: diphenhydrAMINE HCL 50 MG CAPSULE PO PRN (01:31)
[2017-02-15] MEDS: diazePAM 5 MG TABLET PO PRN ×4 (01:31→22:26)
[2017-02-15] MEDS: ALBUTEROL SO4 6.7 GM HFA INHALER IH PRN (09:46)
[2017-02-15] MEDS ORDERED: ALBUTEROL SO4 2.5/IPRATROPIUM 0.5 INH SOL 3 ML VIAL.NEB. NEB PRN (09:46)
[2017-02-15] MEDS: NICOTINE 14 MG/24 HOURS TOPICAL PATCH TD SCH (09:47)
[2017-02-15] MEDS: PRENATAL VITAMINS W/ FOLIC ACID TABLET (FP) PO SCH (09:48)
[2017-02-15] MEDS ORDERED: METHADONE HCL 10 MG TABLET (FOR DETOX USE ONLY) PO ONE (10:00)
[2017-02-15 10:16] LABS: MCH 31.2 pg (25.7-33.7); MEAN CELL VOLUME 91.7 fl (80-96); MEAN PLT VOLUME 9.5 fl (7.5-11.1); PLATELET COUNT 253 K/MM3 (134-434); RDW 12.4 % (11.6-15.6); WHITE BLOOD COUNT 9.6 K/mm3 (4.0-10.0)
--- NOTE | 2017-02-15 11:00 | CONSULT ---
[facility] Psychiatric Consult - Data Date of interview: 02/15/17 Admission source: [facility] Identifying data: This is 26 years old female with history of PTSD, intoxiced with: Opioids and Nicotine Substance Abuse History: - Smoking Cessation. Smoking history: Current every day smoker. Have you smoked in the past 12 months: Yes. Aproximately how many cigarettes per day: 5. Hx Chewing Tobacco Use: No. Initiated information on smoking cessation: Yes. 'Breaking Loose' booklet given: 02/14/17. - Substance & Tx. History. Hx Alcohol Use: No. Hx Substance Use: No. Substance Use Type: Opiates. Hx Substance Use Treatment: Yes (last [facility] 10/13/16 to 10/18/16). - Substances Abused. percocet. Route: Oral. Frequency: Daily. Amount used: 40mg. Age of first use: 24. Date of Last Use: 02/14/17 Medical History: Asthma Psychiatric History: Patient reprots history opf PTSD on about 2-3 years ago , since then she started to reports nightmares, poor sleep hygiene and abusing Opioids. Currently taking: Ambien 10mg po qhs. Preoccupied with insomnia, asking pharmacological help Physical/Sexual Abuse/Trauma History: Denies, unclear Additional Comment: Ambien 10mg po qhs Mental Status Exam - Mental Status Exam Alert and Oriented to: Time, Place, Person Cognitive Function: Fair Patient Appearance: Well Groomed Mood: Apprehensive Affect: Mood Congruent Patient Behavior: Cooperative Speech Pattern: Appropriate Voice Loudness: Normal Thought Process: Goal Oriented Thought Disorder: Being Controlled Hallucinations: Denies Suicidal Ideation: Denies Homicidal Ideation: Denies Insight/Judgement: Fair Sleep: Difficulty falling asleep Appetite: Fair Muscle strength/Tone: Normal Gait/Station: Normal Additional Comments: Ambien 10mg po qhs Psychiatric Findings - Problem List ([place] 1, 2,3) (1) History of bilateral breast reduction surgery Current Visit: Yes Status: Acute (2) Asthma Current Visit: No Status: Chronic Qualifiers: Asthma complication type: uncomplicated (3) Depression Current Visit: No Status: Chronic (4) Nicotine dependence Current Visit: No Status: Chronic Qualifiers: Nicotine product type: cigarettes Substance use status: uncomplicated Qualified Code(s): F17.210 - Nicotine dependence, cigarettes, uncomplicated (5) Opioid dependence with withdrawal Current Visit: No Status: Chronic (6) Post traumatic stress disorder (PTSD) Current Visit: No Status: Chronic (7) Drug-induced mood disorder Current Visit: Yes Status: Acute - Initial Treatment Plan Initial Treatment Plan: Ambien 10mg po qhs. Doxepin 50mg po bid
[2017-02-15 11:20] LABS: ALBUMIN 3.4 g/dl (3.4-5.0); ALK PHOS 91 U/L (45-117); ANION GAP 9 (8-16); BILIRUBIN,TOTAL 0.2 mg/dL (0.2-1.0); CALCIUM 8.8 mg/dL (8.5-10.1); CO2 24 mmol/L (21-32); CREATININE 0.8 mg/dL (0.55-1.02); SGOT/AST 20 U/L (15-37); SGPT/ALT 30 U/L (12-78); TOT PROT 6.7 g/dl (6.4-8.2)
[2017-02-15 11:22] LABS: GLUCOSE,RANDOM 78 mg/dL (74-106)
--- NOTE | 2017-02-15 11:34 | PN ---
S CIWA - CIWA Score Nausea/Vomitin-No Nausea/No Vomiting Muscle Tremors: 4-Moderate,w/Arms Extend Anxiety: 3 Agitation: 4-Moderately Restless Paroxysmal Sweats: 3 Orientation: 0-Oriented Tacttile Disturbances: 0-None Auditory Disturbances: 0-None Visual Disturbances: 0-None Headache: 1-Very Mild CIWA-Ar Total Score: 15 BHS Progress Note (SOAP) Subjective: sweats mild shakes body aches constipation interrupted sleep I have asthma and need my pump Objective: 02/15/17 11:32 Vital Signs Temperature 97.8 F 02/15/17 10:00 Pulse Rate 93 H 02/15/17 10:00 Respiratory Rate 20 02/15/17 10:00 Blood Pressure 100/69 02/15/17 10:00 O2 Sat by Pulse Oximetry (%) Laboratory Tests 02/14/17 02/15/17 02/15/17 20:00 05:45 05:45 WBC 9.6 RBC 4.54 Hgb 14.2 Hct 41.7 MCV 91.7 MCH 31.2 MCHC 34.0 RDW 12.4 Plt Count 253 MPV 9.5 Sodium 139 Potassium 4.1 Chloride 106 Carbon Dioxide 24 Anion Gap 9 BUN 14 Creatinine 0.8 Creat Clearance w eGFR > 60 Random Glucose 78 Calcium 8.8 Total Bilirubin 0.2 D AST 20 D ALT 30 D Alkaline Phosphatase 91 D Total Protein 6.7 Albumin 3.4 Urine Color Ltyellow Urine Appearance Slcloudy Urine pH 5.0 Ur Specific [place] >= 1.030 H Urine Protein Negative Urine Glucose (UA) Negative Urine Ketones Negative Urine Blood Negative Urine Nitrite Negative Urine Bilirubin Negative Urine Urobilinogen Negative Ur Leukocyte Esterase Negative awake/alert ambulating no acute distress Assessment: 02/15/17 11:33 withdrawal sx Plan: continue detox increase fluids duoneb prn albuterol ordered
[2017-02-15] MEDS: DOXEPIN HCL 50 MG CAPSULE PO SCH ×2 (11:39→22:26)
--- NOTE | 2017-02-15 12:24 | EKG ---
Test Reason : Blood Pressure : / mmHG Vent. Rate : 093 BPM Atrial Rate : 093 BPM P-R Int : 154 ms QRS Dur : 088 ms QT Int : 370 ms P-R-T Axes : 043 033 014 degrees QTc Int : 460 ms NORMAL SINUS RHYTHM NORMAL ECG WHEN COMPARED WITH ECG OF 13-OCT-2016 16:18, NO SIGNIFICANT CHANGE WAS FOUND Confirmed by KLARISSA LANDIS MD ([id number]) on 02/15/2017 12:24:03 PM Referred By: Confirmed By:KLARISSA LANDIS MD
[2017-02-15] MEDS: ZOLPIDEM TARTRATE 5 MG TABLET PO PRN (22:25)
[2017-02-15] MEDS: THIAMINE HCL 100 MG TABLET (FP) PO SCH (22:27)
[2017-02-16] MEDS: MAG HYDROX/AL HYDROX/SIMETH 30 ML UNIT-DOSE CUP PO PRN (01:34)
[2017-02-16] MEDS: diphenhydrAMINE HCL 50 MG CAPSULE PO PRN (01:34)
[2017-02-16] MEDS: ALBUTEROL SO4 6.7 GM HFA INHALER IH PRN ×3 (06:15→22:29)
[2017-02-16] MEDS: diazePAM 5 MG TABLET PO PRN ×4 (06:16→22:28)
[2017-02-16] MEDS ORDERED: METHADONE HCL 5 MG TABLET (FOR DETOX USE ONLY) PO ONE (10:00)
[2017-02-16] MEDS: DOXEPIN HCL 50 MG CAPSULE PO SCH ×2 (11:15→22:28)
[2017-02-16] MEDS: PRENATAL VITAMINS W/ FOLIC ACID TABLET (FP) PO SCH (11:16)
[2017-02-16] MEDS: NICOTINE 14 MG/24 HOURS TOPICAL PATCH TD SCH (11:19)
--- NOTE | 2017-02-16 13:38 | PN ---
S COWS - Scale Resting Pulse: 1= [place] 81-100 Sweatin= Chills/Flushing Restless Observation: 0= Sits Still Pupil Size: 0= Normal to Room Light Bone or Joint Aches: 2= Severe Diffuse Aches Runny Nose/ Eye Tearin= Runny Nose/Eyes GI Upset > 30mins: 2= Nausea/Diarrhea Tremor Observation of Outstretched Hands: 2= Slight Tremor Visible Yawning Observation: 2= >3x During Session Anxiety or Irritability: 2=Irritable/Anxious Goose Flesh Skin: 0=Smooth Skin COWS Score: 14 S Progress Note (SOAP) Subjective: Tremors, Diarrhea, Fatigue, H/A, Interrupted sleep, Sweating. Objective: PT. A & O X 3. NO ACUTE DISTRESS. 02/16/17 13:36 Vital Signs Temperature 98.2 F 02/16/17 10:00 Pulse Rate 92 H 02/16/17 10:00 Respiratory Rate 16 02/16/17 10:00 Blood Pressure 101/69 02/16/17 10:00 O2 Sat by Pulse Oximetry (%) Laboratory Tests 02/14/17 02/15/17 02/15/17 20:00 05:45 05:45 WBC 9.6 RBC 4.54 Hgb 14.2 Hct 41.7 MCV 91.7 MCH 31.2 MCHC 34.0 RDW 12.4 Plt Count 253 MPV 9.5 Sodium 139 Potassium 4.1 Chloride 106 Carbon Dioxide 24 Anion Gap 9 BUN 14 Creatinine 0.8 Creat Clearance w eGFR > 60 Random Glucose 78 Calcium 8.8 Total Bilirubin 0.2 D AST 20 D ALT 30 D Alkaline Phosphatase 91 D Total Protein 6.7 Albumin 3.4 Urine Color Ltyellow Urine Appearance Slcloudy Urine pH 5.0 Ur Specific [place] >= 1.030 H Urine Protein Negative Urine Glucose (UA) Negative Urine Ketones Negative Urine Blood Negative Urine Nitrite Negative Urine Bilirubin Negative Urine Urobilinogen Negative Ur Leukocyte Esterase Negative RPR Titer 02/15/17 05:45 WBC RBC Hgb Hct MCV MCH MCHC RDW Plt Count MPV Sodium Potassium Chloride Carbon Dioxide Anion Gap BUN Creatinine Creat Clearance w eGFR Random Glucose Calcium Total Bilirubin AST ALT Alkaline Phosphatase Total Protein Albumin Urine Color Urine Appearance Urine pH Ur Specific [place] Urine Protein Urine Glucose (UA) Urine Ketones Urine Blood Urine Nitrite Urine Bilirubin Urine Urobilinogen Ur Leukocyte Esterase RPR Titer Nonreactive LABS NOTED. Assessment: 02/16/17 13:36 WITHDRAWAL SYMPTOMS. Plan: CONTINUE DETOX. PRN IMMODIUM FOR DIARRHEA.
[2017-02-16] MEDS: THIAMINE HCL 100 MG TABLET (FP) PO SCH (22:28)
[2017-02-16] MEDS: ZOLPIDEM TARTRATE 5 MG TABLET PO PRN (22:30)
[2017-02-17] MEDS: ALBUTEROL SO4 6.7 GM HFA INHALER IH PRN ×2 (05:58→22:17)
[2017-02-17] MEDS: diazePAM 5 MG TABLET PO PRN ×2 (05:58→10:41)
[2017-02-17] MEDS: MAG HYDROX/AL HYDROX/SIMETH 30 ML UNIT-DOSE CUP PO PRN (06:53)
[2017-02-17] MEDS ORDERED: METHADONE HCL 5 MG TABLET (FOR DETOX USE ONLY) PO ONE (10:00)
[2017-02-17] MEDS: DOXEPIN HCL 50 MG CAPSULE PO SCH ×2 (10:39→22:17)
[2017-02-17] MEDS: PRENATAL VITAMINS W/ FOLIC ACID TABLET (FP) PO SCH (10:41)
[2017-02-17] MEDS: NICOTINE 14 MG/24 HOURS TOPICAL PATCH TD SCH (10:42)
[2017-02-17] MEDS ORDERED: FUROSEMIDE 20 MG TABLET (FP) PO ONE (12:30)
--- NOTE | 2017-02-17 12:36 | PN ---
BHS Progress Note (SOAP) Subjective: some lower feet swelling sweats interrupted sleep Objective: 02/17/17 12:33 Vital Signs Temperature 98.2 F 02/17/17 10:00 Pulse Rate 109 H 02/17/17 10:00 Respiratory Rate 20 02/17/17 10:00 Blood Pressure 94/62 02/17/17 10:00 O2 Sat by Pulse Oximetry (%) awake/alert ambulating no acute distress Assessment: 02/17/17 12:34 withdrawals sx Plan: continue detox increase fluids lasix 20mg x one
[2017-02-17] MEDS: ZOLPIDEM TARTRATE 5 MG TABLET PO PRN (22:17)
[2017-02-17] MEDS: THIAMINE HCL 100 MG TABLET (FP) PO SCH (22:17)
[2017-02-17] MEDS: hydrOXYzine PAMOATE 50 MG CAPSULE (FP) PO PRN (22:17)
[2017-02-17] MEDS: IBUPROFEN 400 MG TABLET (FP) PO PRN (22:19)
[2017-02-18] MEDS ORDERED: METHADONE HCL 10 MG TABLET (FOR DETOX USE ONLY) PO ONE (10:00)
[2017-02-18] MEDS: PRENATAL VITAMINS W/ FOLIC ACID TABLET (FP) PO SCH (10:54)
[2017-02-18] MEDS: DOXEPIN HCL 50 MG CAPSULE PO SCH ×2 (10:54→22:37)
[2017-02-18] MEDS: IBUPROFEN 400 MG TABLET (FP) PO PRN (10:55)
[2017-02-18] MEDS: NICOTINE 14 MG/24 HOURS TOPICAL PATCH TD SCH (10:57)
--- NOTE | 2017-02-18 12:36 | PN ---
BHS Progress Note (SOAP) Subjective: Sweating,interrupted sleep,restless Objective: 02/18/17 12:35 Vital Signs - 8 hr 02/18/17 02/18/17 06:00 10:02 Temperature 97.7 F 98.1 F Pulse Rate 89 103 H Respiratory 18 18 Rate Blood Pressure 97/57 102/71 Laboratory Tests 02/14/17 02/15/17 02/15/17 20:00 05:45 05:45 WBC 9.6 RBC 4.54 Hgb 14.2 Hct 41.7 MCV 91.7 MCH 31.2 MCHC 34.0 RDW 12.4 Plt Count 253 MPV 9.5 Sodium 139 Potassium 4.1 Chloride 106 Carbon Dioxide 24 Anion Gap 9 BUN 14 Creatinine 0.8 Creat Clearance w eGFR > 60 Random Glucose 78 Calcium 8.8 Total Bilirubin 0.2 D AST 20 D ALT 30 D Alkaline Phosphatase 91 D Total Protein 6.7 Albumin 3.4 Urine Color Ltyellow Urine Appearance Slcloudy Urine pH 5.0 Ur Specific [place] >= 1.030 H Urine Protein Negative Urine Glucose (UA) Negative Urine Ketones Negative Urine Blood Negative Urine Nitrite Negative Urine Bilirubin Negative Urine Urobilinogen Negative Ur Leukocyte Esterase Negative RPR Titer 02/15/17 05:45 WBC RBC Hgb Hct MCV MCH MCHC RDW Plt Count MPV Sodium Potassium Chloride Carbon Dioxide Anion Gap BUN Creatinine Creat Clearance w eGFR Random Glucose Calcium Total Bilirubin AST ALT Alkaline Phosphatase Total Protein Albumin Urine Color Urine Appearance Urine pH Ur Specific [place] Urine Protein Urine Glucose (UA) Urine Ketones Urine Blood Urine Nitrite Urine Bilirubin Urine Urobilinogen Ur Leukocyte Esterase RPR Titer Nonreactive labs noted Assessment: 02/18/17 12:35 Withdrawal sx. Plan: Continue detox
[2017-02-18] MEDS: MAG HYDROX/AL HYDROX/SIMETH 30 ML UNIT-DOSE CUP PO PRN (17:07)
[2017-02-18] MEDS: hydrOXYzine PAMOATE 50 MG CAPSULE (FP) PO PRN ×2 (17:07→22:37)
[2017-02-18] MEDS: THIAMINE HCL 100 MG TABLET (FP) PO SCH (22:37)
[2017-02-18] MEDS: ZOLPIDEM TARTRATE 5 MG TABLET PO PRN (22:37)
[2017-02-18] MEDS: ALBUTEROL SO4 6.7 GM HFA INHALER IH PRN (22:37)
[2017-02-19] MEDS ORDERED: METHADONE HCL 5 MG TABLET (FOR DETOX USE ONLY) PO ONE (06:00)
[2017-02-19 06:54] VITALS: BP 100/56; PULSE 103; TEMP 97.9
--- NOTE | 2017-02-19 09:11 | DS ---
[facility] Detox Discharge Summary Admission Date: 02/14/17 Discharge Date: 02/19/17 - History Present History: Opioid Dependence Pertinent Past History: Asthma Breast Reduction surgery - Physical Exam Results Vital Signs: Vital Signs Temperature 97.9 F 02/19/17 06:00 Pulse Rate 103 H 02/19/17 06:00 Respiratory Rate 18 02/19/17 06:00 Blood Pressure 100/56 02/19/17 06:00 O2 Sat by Pulse Oximetry (%) Pertinent Admission Physical Exam Findings: Withdrawal sx. Laboratory Last Values WBC 9.6 K/mm3 (4.0-10.0) 02/15/17 05:45 RBC 4.54 M/mm3 (3.60-5.2) 02/15/17 05:45 Hgb 14.2 GM/dL (10.7-15.3) 02/15/17 05:45 Hct 41.7 % (32.4-45.2) 02/15/17 05:45 MCV 91.7 fl (80-96) 02/15/17 05:45 MCH 31.2 pg (25.7-33.7) 02/15/17 05:45 MCHC 34.0 g/dl (32.0-36.0) 02/15/17 05:45 RDW 12.4 % (11.6-15.6) 02/15/17 05:45 Plt Count 253 K/MM3 (134-434) 02/15/17 05:45 MPV 9.5 fl (7.5-11.1) 02/15/17 05:45 Sodium 139 mmol/L (136-145) 02/15/17 05:45 Potassium 4.1 mmol/L (3.5-5.1) 02/15/17 05:45 Chloride 106 mmol/L (98-107) 02/15/17 05:45 Carbon Dioxide 24 mmol/L (21-32) 02/15/17 05:45 Anion Gap 9 (8-16) 02/15/17 05:45 BUN 14 mg/dL (7-18) 02/15/17 05:45 Creatinine 0.8 mg/dL (0.55-1.02) 02/15/17 05:45 Creat Clearance w eGFR > 60 (>60) 02/15/17 05:45 Random Glucose 78 mg/dL (74-106) 02/15/17 05:45 Calcium 8.8 mg/dL (8.5-10.1) 02/15/17 05:45 Total Bilirubin 0.2 mg/dL (0.2-1.0) D 02/15/17 05:45 AST 20 U/L (15-37) D 02/15/17 05:45 ALT 30 U/L (12-78) D 02/15/17 05:45 Alkaline Phosphatase 91 U/L (45-117) D 02/15/17 05:45 Total Protein 6.7 g/dl (6.4-8.2) 02/15/17 05:45 Albumin 3.4 g/dl (3.4-5.0) 02/15/17 05:45 Urine Color Ltyellow 02/14/17 20:00 Urine Appearance Slcloudy 02/14/17 20:00 Urine pH 5.0 (5.0-8.0) 02/14/17 20:00 Ur Specific [place] >= 1.030 (1.005-1.025) H 02/14/17 20:00 Urine Protein Negative (NEGATIVE) 02/14/17 20:00 Urine Glucose (UA) Negative (NEGATIVE) 02/14/17 20:00 Urine Ketones Negative (NEGATIVE) 02/14/17 20:00 Urine Blood Negative (NEGATIVE) 02/14/17 20:00 Urine Nitrite Negative (NEGATIVE) 02/14/17 20:00 Urine Bilirubin Negative (NEGATIVE) 02/14/17 20:00 Urine Urobilinogen Negative mg/dL (0.2-1.0) 02/14/17 20:00 Ur Leukocyte Esterase Negative (NEGATIVE) 02/14/17 20:00 RPR Titer Nonreactive (NONREACTIVE) 02/15/17 05:45 labs noted - Treatment Hospital Course: Detox Protocol Followed, Detoxed Safely, Responded well, Discharged Condition Good, Rehab Referral Accepted Patient has Accepted a Rehab Referral to: Refused referral,given information about 12-step meetings - Medication Discharge Medications: Ambulatory Orders Albuterol Sulfate Inhaler - [Ventolin Hfa Inhaler -] 2 inh PO Q4H PRN 02/14/17 Zolpidem Tartrate [Ambien] 10 mg PO HS 02/14/17 Doxepin HCl [Sinequan -] 50 mg PO BID #60 cap 02/15/17 - Diagnosis (1) Drug-induced mood disorder Current Visit: Yes Status: Acute (2) Asthma Current Visit: Yes Status: Chronic Qualifiers: Asthma severity: mild intermittent Asthma complication type: uncomplicated Qualified Code(s): J45.20 - Mild intermittent asthma, uncomplicated (3) Nicotine dependence Current Visit: Yes Status: Chronic Qualifiers: Nicotine product type: cigarettes Substance use status: uncomplicated Qualified Code(s): F17.210 - Nicotine dependence, cigarettes, uncomplicated (4) Opioid dependence with withdrawal Current Visit: Yes Status: Chronic (5) Post traumatic stress disorder (PTSD) Current Visit: Yes Status: Chronic - AMA Did Patient Leave Against Medical Advice: No
[2017-02-19] MEDS: DOXEPIN HCL 50 MG CAPSULE PO SCH (09:40)
[2017-02-19] MEDS: hydrOXYzine PAMOATE 50 MG CAPSULE (FP) PO PRN (09:40)
[2017-02-19] MEDS: PRENATAL VITAMINS W/ FOLIC ACID TABLET (FP) PO SCH (09:40)
== END 2017-02-19 09:50 | disposition home or self-care (01) | DRG 897 ==
LOC: YASAS 10:55 → Y6N 14:19
PROVIDERS: ADMIT Internal Medicine; ATTEND Internal Medicine
PROC: HZ2ZZZZ Detoxification Services for Substance Abuse Treatment (ICD-10-PCS; principal; 2017-02-19)
DX: F11.23 Opioid dependence with withdrawal (principal); F17.210 Nicotine dependence, cigarettes, uncomplicated; F43.10 Post-traumatic stress disorder, unspecified; F19.24 Other psychoactive substance dependence with psychoactive substance-induced mood disorder; F32.9 Major depressive disorder, single episode, unspecified; J45.20 Mild intermittent asthma, uncomplicated
CPT/HCPCS: 36415; 80053; 81003; 85027; 86593; 93005; 93010; 94640

== ENCOUNTER 2017-05-15 15:27 | Inpatient (IN) | payer MEDICARE, OTHER ==
[2017-05-15 17:39] VITALS: BMI 28.3
--- NOTE | 2017-05-15 19:12 | HP ---
COWS - Scale Resting Pulse: 1= [place] 81-100 Sweatin= Beads of Sweat on Face Restless Observation: 3= Extraneous Movement Pupil Size: 0= Normal to Room Light Bone or Joint Aches: 4=Acute Joint/Muscle Pain Runny Nose/ Eye Tearin= Runny Nose/Eyes (nausea, vomiting x 3, diarrhea x 2) GI Upset > 30mins: 3= Vomiting/Diarrhea Tremor Observation: 4= Gross Tremor/Twitching Yawning Observation: 1= 1-2x During Session Anxiety or Irritability: 4=Extreme Anxiety Goose Flesh Skin: 3=Piloerection COWS Score: 28 Admission ROS S - [facility] Chief Complaint: Opioid (Percocet) dependence Allergies/Adverse Reactions: Allergies Allergy/AdvReac Type Severity Reaction Status Date / Time No Known Allergies Allergy Verified 05/15/17 19:36 History of Present Illness: 26 years old female with 1 year hx of Percocet dependence is admitted for detox. Patient has been in previous detox in January 2017. Denies significant sobriety Exam Limitations: No Limitations - Ebola screening Have you traveled outside of the country in the last 21 days: No Have you had contact with anyone from an Ebola affected area: No Have you been sick,other than usual withdrawal symptoms: No Do you have a fever: No - Review of Systems Constitutional: Chills, Loss of Appetite, Malaise, Night Sweats, Changes in sleep, Weakness EENT: reports: No Symptoms Reported Respiratory: reports: No Symptoms reported Cardiac: reports: No Symptoms Reported GI: reports: Diarrhea, Poor Appetite, Poor Fluid Intake, Abdominal cramping : reports: No Symptoms Reported Musculoskeletal: reports: Muscle Pain, Muscle Weakness, Neck Pain Integumentary: reports: Flushing Neuro: reports: Headache, Tingling, Tremors Endocrine: reports: Flushing Hematology: reports: No Symptoms Reported Psychiatric: reports: Mood/Affect Appropiate, Orientated x3 Other Systems: Reviewed and Negative Patient History - Patient Medical History Hx Anemia: No Hx Asthma: Yes (Albuterol) Hx Chronic Obstructive Pulmonary Disease (COPD): No Hx Cancer: No Hx Cardiac Disorders: No Hx Congestive Heart Failure: No Hx Hypertension: No Hx Hypercholesterolemia: No Hx Pacemaker: No HX Cerebrovascular Accident: No Hx Seizures: No Hx Dementia: No Hx Diabetes: No Hx Gastrointestinal Disorders: No Hx Liver Disease: No Hx Genitourinary Disorders: No Hx Sexually Transmitted Disorders: No Hx Renal Disease (ESRD): No Hx Thyroid Disease: No Hx Human Immunodeficiency Virus (HIV): No (Negative 02/06 ) Hx Hepatitis C: No Hx Depression: Yes (anxiety) Hx Suicide Attempt: No Hx Bipolar Disorder: No Hx Schizophrenia: No - Patient Surgical History Past Surgical History: No Hx Neurologic Surgery: No Hx Cataract Extraction: No Hx Cardiac Surgery: No Hx Lung Surgery: No Hx Breast Surgery: Yes (Breast reduction 2015) Hx Breast Biopsy: No Hx Abdominal Surgery: No Hx Appendectomy: No Hx Cholecystectomy: No Hx Genitourinary Surgery: No Hx Section: No Hx Orthopedic Surgery: No Other Surgical History: liposuction 11/2016 Anesthesia Reaction: No - PPD History Previous Implant?: Yes Documented Results: Negative w/proof Implanted On Prior [facility] Admission?: Yes Date: 10/15/16 Results: O MM PPD to be Administered?: No - Reproductive History Patient is a Female of Child Bearing Age (11 -55 yrs old): Yes Last Menstrual Period: 01/25/17 Patient : No (Had an May 11, 2017) - Smoking Cessation Smoking history: Current every day smoker Have you smoked in the past 12 months: Yes Aproximately how many cigarettes per day: 5 Hx Chewing Tobacco Use: No Initiated information on smoking cessation: Yes 'Breaking Loose' booklet given: 05/15/17 - Substance & Tx. History Hx Alcohol Use: No (Denies) Hx Substance Use: Yes (Percocet) Substance Use Type: Opiates Hx Substance Use Treatment: Yes (09/2016) - Substances Abused None Route: Percocet Frequency: Daily Amount used: 10 Age of first use: 25 Date of Last Use: 05/15/17 Benzodiazepine (Klonopin) Frequency: Daily Amount used: 1 Age of first use: 25 Date of Last Use: 05/14/17 Family Disease History - Family Disease History Family History: Denies Admission Physical Exam BHS - Vital Signs Vital Signs: Vital Signs - 24 hr 05/15/17 17:33 Temperature 97.8 F Pulse Rate 99 H Respiratory 18 Rate Blood Pressure 129/90 - Physical General Appearance: Yes: Nourished, Moderate Distress, Tremorous, Irritable, Sweating, Anxious HEENTM: Yes: EOMI, Normal Voice, ZAY Respiratory: Yes: Lungs Clear, Normal Breath Sounds, No Respiratory Distress Neck: Yes: Supple Breast: Yes: Breast Exam Deferred Cardiology: Yes: Regular Rhythm, Regular Rate, S1, S2 Abdominal: Yes: Normal Bowel Sounds Genitourinary: Yes: Hematuria (status post ) Back: Yes: Normal Inspection Musculoskeletal: Yes: Back pain, Muscle Pain, Muscle weakness Extremities: Yes: Tremors, Other (right arm, right wrist, right foot and left arm) Neurological: Yes: Fully Oriented, Alert, Normal Mood/Affect, Normal Response Integumentary: Yes: Warm Lymphatic: Yes: Within Normal Limits - Diagnostic (1) History of bilateral breast reduction surgery Current Visit: No Status: Chronic (2) Asthma Current Visit: Yes Status: Chronic Qualifiers: Asthma severity: mild intermittent Asthma complication type: uncomplicated (3) Depression Current Visit: Yes Status: Chronic (4) Nicotine dependence Current Visit: Yes Status: Acute Qualifiers: Nicotine product type: cigarettes Substance use status: uncomplicated Qualified Code(s): F17.210 - Nicotine dependence, cigarettes, uncomplicated; F17.210 - Nicotine dependence, cigarettes, uncomplicated (5) Opioid dependence with withdrawal Current Visit: Yes Status: Acute Cleared for Admission [facility] - Detox or Rehab [facility] Level of Care: Medically Managed Detox Regimen/Protocol: Methadone [facility] Breath Alcohol Content Breath Alcohol Content: 0 Urine Pregancy Test - Result Urine Test Results: Negative- NO Line Present Urine Drug Screen - Results Drug Screen Negative: No Urine Drug Screen Results: BZO-Benzodiazepines, OXY-Oxycodone
[2017-05-15] MEDS ORDERED: diphenhydrAMINE HCL 50 MG CAPSULE PO PRN (19:28)
[2017-05-15] MEDS ORDERED: LOPERAMIDE HCL 2 MG CAPSULE PO PRN (19:28)
[2017-05-15] MEDS ORDERED: MAGNESIUM HYDROX 2400MG/30ML ORAL SUSPENSION 30 ML CUP PO PRN (19:28)
[2017-05-15] MEDS ORDERED: MENTHOL/PHENOL 1 EACH UD MM PRN (19:28)
[2017-05-15] MEDS ORDERED: METHADONE HCL 10 MG TABLET (FOR DETOX USE ONLY) PO ONE ×2 (19:28→23:00)
[2017-05-15] MEDS ORDERED: P-EPHED 60MG/TRIPROLIDI 2.5MG TABLET PO PRN (19:28)
[2017-05-15] MEDS ORDERED: guaiFENesin/D-METHORPHAN HB 10 ML UNIT-DOSE CUPS PO PRN (19:28)
[2017-05-15] MEDS ORDERED: NICOTINE POLACRILEX 2 MG GUM BC PRN (19:28)
[2017-05-15] MEDS ORDERED: ACETAMINOPHEN 325 MG TABLET (FP) PO PRN (19:28)
[2017-05-15] MEDS ORDERED: MAG HYDROX/AL HYDROX/SIMETH 30 ML UNIT-DOSE CUP PO PRN (19:28)
[2017-05-15] MEDS ORDERED: MAGNESIUM CITRATE 300 ML BOTTLE PO PRN (19:28)
[2017-05-15] MEDS ORDERED: ALBUTEROL SO4 18 GM HFA INHALER IH PRN (19:34)
[2017-05-15] MEDS ORDERED: METHADONE HCL 10 MG TABLET (FOR DETOX USE ONLY) ONE (21:52)
[2017-05-15] MEDS: diazePAM 5 MG TABLET PO PRN (22:10)
[2017-05-15] MEDS: THIAMINE HCL 100 MG TABLET (FP) PO SCH (22:11)
[2017-05-16] MEDS: diazePAM 5 MG TABLET PO PRN ×5 (02:43→19:04)
--- NOTE | 2017-05-16 09:56 | PN ---
BHS COWS - Scale Resting Pulse: 1= [place] 81-100 Sweatin= Chills/Flushing Restless Observation: 3= Extraneous Movement Pupil Size: 1= Pupils >than Normal Bone or Joint Aches: 2= Severe Diffuse Aches Runny Nose/ Eye Tearin= Runny Nose/Eyes GI Upset > 30mins: 2= Nausea/Diarrhea Tremor Observation of Outstretched Hands: 2= Slight Tremor Visible Yawning Observation: 1= 1-2x During Session Anxiety or Irritability: 2=Irritable/Anxious Goose Flesh Skin: 0=Smooth Skin COWS Score: 17 BHS Progress Note (SOAP) Subjective: alert,irritable,anxious,interrupted sleep,tremor,pain in the body and back Objective: 05/16/17 09:54 Vital Signs Temperature 98.2 F 05/16/17 06:16 Pulse Rate 97 H 05/16/17 06:16 Respiratory Rate 20 05/16/17 06:16 Blood Pressure 111/50 05/16/17 06:16 O2 Sat by Pulse Oximetry (%) ekg sinus rhythm and sinus arrhythmia normal ecg labs pending Assessment: 05/16/17 09:56 withdrawal symptom Plan: continue detox
[2017-05-16] MEDS ORDERED: METHADONE HCL 10 MG TABLET (FOR DETOX USE ONLY) PO ONE (10:00)
[2017-05-16] MEDS: PRENATAL VITAMINS W/ FOLIC ACID TABLET (FP) PO SCH (10:06)
[2017-05-16] MEDS: NICOTINE 14 MG/24 HOURS TOPICAL PATCH TD SCH (10:06)
[2017-05-16] MEDS: hydrOXYzine PAMOATE 50 MG CAPSULE (FP) PO PRN (10:07)
[2017-05-16 10:08] LABS: MCH 29.6 pg (25.7-33.7); MCHC 33.7 g/dl (32.0-36.0); MEAN CELL VOLUME 87.7 fl (80-96); MEAN PLT VOLUME 7.8 fl (7.5-11.1); PLATELET COUNT 322 K/MM3 (134-434); RDW 14.1 % (11.6-15.6); WHITE BLOOD COUNT 13.1 K/mm3 (4.0-10.0)
[2017-05-16] MEDS: IBUPROFEN 400 MG TABLET (FP) PO PRN (10:08)
[2017-05-16 10:31] LABS: ANION GAP 11 (8-16); CO2 24 mmol/L (21-32); GLUCOSE,RANDOM 79 mg/dL (74-106); SGOT/AST 14 U/L (15-37); SGPT/ALT 26 U/L (12-78)
[2017-05-16 10:35] LABS: ALK PHOS 60 U/L (45-117); BILIRUBIN,TOTAL 0.1 mg/dL (0.2-1.0); CALCIUM 8.6 mg/dL (8.5-10.1); CREATININE 0.6 mg/dL (0.55-1.02); TOT PROT 6.1 g/dl (6.4-8.2)
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
[2017-05-16] MEDS: SERTRALINE HCL 50 MG TABLET (FP) PO SCH (12:04)
[2017-05-16] MEDS: CYCLOBENZAPRINE HCL 10 MG TABLET (FP) PO PRN (14:09)
[2017-05-16 16:08] LABS: URINE APPEARANCE CLOUDY; URINE BILIRUBIN NEGATIVE (NEGATIVE); URINE BLOOD 3+ (NEGATIVE); URINE COLOR DKYELLOW; URINE GLUCOSE (UA) NEGATIVE (NEGATIVE); URINE KETONE NEGATIVE (NEGATIVE); URINE NITRITE NEGATIVE (NEGATIVE); URINE UROBILINOGEN NEGATIVE mg/dL (0.2-1.0)
[2017-05-16 16:15] LABS: URINE PROTEIN 1+ (NEGATIVE)
[2017-05-16 16:29] LABS: URINE HYALINE CAST 5 /lpf; URINE MUCUS MANY; URINE RBC 10 /hpf (0-3); URINE WBC 107 /hpf (3-5)
[2017-05-16 20:17] LABS: URINE LEUK ESTERASE 1+ (NEGATIVE)
--- NOTE | 2017-05-16 20:28 | EKG ---
Test Reason : Blood Pressure : / mmHG Vent. Rate : 080 BPM Atrial Rate : 086 BPM P-R Int : 136 ms QRS Dur : 074 ms QT Int : 374 ms P-R-T Axes : 004 048 016 degrees QTc Int : 431 ms SINUS RHYTHM WITH MARKED SINUS ARRHYTHMIA OTHERWISE NORMAL ECG WHEN COMPARED WITH ECG OF 14-FEB-2017 14:22, NO SIGNIFICANT CHANGE WAS FOUND Confirmed by LEVI MALIK MD ([id number]) on 05/16/2017 8:28:08 PM Referred By: Confirmed By:LEVI MALIK MD
[2017-05-16] MEDS: THIAMINE HCL 100 MG TABLET (FP) PO SCH (22:26)
[2017-05-16] MEDS: ZOLPIDEM TARTRATE 10 MG TABLET (PARK CARE ONLY) PO PRN (22:26)
[2017-05-17] MEDS: diazePAM 5 MG TABLET PO PRN ×3 (01:51→14:11)
[2017-05-17] MEDS ORDERED: METHADONE HCL 5 MG TABLET (FOR DETOX USE ONLY) PO ONE (10:00)
[2017-05-17] MEDS: SERTRALINE HCL 50 MG TABLET (FP) PO SCH (10:11)
[2017-05-17] MEDS: hydrOXYzine PAMOATE 50 MG CAPSULE (FP) PO PRN (10:11)
[2017-05-17] MEDS: PRENATAL VITAMINS W/ FOLIC ACID TABLET (FP) PO SCH (10:11)
[2017-05-17] MEDS: CYCLOBENZAPRINE HCL 10 MG TABLET (FP) PO PRN ×2 (10:11→22:08)
[2017-05-17] MEDS: NICOTINE 14 MG/24 HOURS TOPICAL PATCH TD SCH (10:11)
--- NOTE | 2017-05-17 10:34 | PN ---
BHS COWS - Scale Resting Pulse: 1= [place] 81-100 Sweatin= Chills/Flushing Restless Observation: 3= Extraneous Movement Pupil Size: 1= Pupils >than Normal Bone or Joint Aches: 2= Severe Diffuse Aches Runny Nose/ Eye Tearin= Runny Nose/Eyes GI Upset > 30mins: 3= Vomiting/Diarrhea Tremor Observation of Outstretched Hands: 2= Slight Tremor Visible Yawning Observation: 1= 1-2x During Session Anxiety or Irritability: 2=Irritable/Anxious Goose Flesh Skin: 0=Smooth Skin COWS Score: 18 BHS Progress Note (SOAP) Subjective: alert,irritable,anxious,interrupted sleep,pain in the body and back Objective: 05/17/17 10:40 Vital Signs Temperature 98.7 F 05/17/17 09:54 Pulse Rate 100 H 05/17/17 09:54 Respiratory Rate 18 05/17/17 09:54 Blood Pressure 123/76 05/17/17 09:54 O2 Sat by Pulse Oximetry (%) Laboratory Last Values WBC 13.1 K/mm3 (4.0-10.0) H D 05/16/17 07:00 RBC 4.03 M/mm3 (3.60-5.2) 05/16/17 07:00 Hgb 11.9 GM/dL (10.7-15.3) D 05/16/17 07:00 Hct 35.3 % (32.4-45.2) D 05/16/17 07:00 MCV 87.7 fl (80-96) 05/16/17 07:00 MCH 29.6 pg (25.7-33.7) 05/16/17 07:00 MCHC 33.7 g/dl (32.0-36.0) 05/16/17 07:00 RDW 14.1 % (11.6-15.6) D 05/16/17 07:00 Plt Count 322 K/MM3 (134-434) D 05/16/17 07:00 MPV 7.8 fl (7.5-11.1) D 05/16/17 07:00 Sodium 142 mmol/L (136-145) 05/16/17 07:00 Potassium 4.0 mmol/L (3.5-5.1) 05/16/17 07:00 Chloride 107 mmol/L (98-107) 05/16/17 07:00 Carbon Dioxide 24 mmol/L (21-32) 05/16/17 07:00 Anion Gap 11 (8-16) 05/16/17 07:00 BUN 10 mg/dL (7-18) D 05/16/17 07:00 Creatinine 0.6 mg/dL (0.55-1.02) D 05/16/17 07:00 Creat Clearance w eGFR > 60 (>60) 05/16/17 07:00 Random Glucose 79 mg/dL (74-106) 05/16/17 07:00 Calcium 8.6 mg/dL (8.5-10.1) 05/16/17 07:00 Total Bilirubin 0.1 mg/dL (0.2-1.0) L D 05/16/17 07:00 AST 14 U/L (15-37) L D 05/16/17 07:00 ALT 26 U/L (12-78) 05/16/17 07:00 Alkaline Phosphatase 60 U/L (45-117) D 05/16/17 07:00 Total Protein 6.1 g/dl (6.4-8.2) L 05/16/17 07:00 Albumin 3.0 g/dl (3.4-5.0) L 05/16/17 07:00 Urine Color Dkyellow 05/16/17 10:30 Urine Appearance Cloudy 05/16/17 10:30 Urine pH 5.0 (5.0-8.0) 05/16/17 10:30 Ur Specific [place] >= 1.030 (1.005-1.025) H 05/16/17 10:30 Urine Protein 1+ (NEGATIVE) H 05/16/17 10:30 Urine Glucose (UA) Negative (NEGATIVE) 05/16/17 10:30 Urine Ketones Negative (NEGATIVE) 05/16/17 10:30 Urine Blood 3+ (NEGATIVE) H 05/16/17 10:30 Urine Nitrite Negative (NEGATIVE) 05/16/17 10:30 Urine Bilirubin Negative (NEGATIVE) 05/16/17 10:30 Urine Urobilinogen Negative mg/dL (0.2-1.0) 05/16/17 10:30 Ur Leukocyte Esterase 1+ (NEGATIVE) H 05/16/17 10:30 Urine RBC 10 /hpf (0-3) 05/16/17 10:30 Urine WBC 107 /hpf (3-5) 05/16/17 10:30 Ur Epithelial Cells Moderate /hpf (FEW) 05/16/17 10:30 Hyaline Casts 5 /lpf 05/16/17 10:30 Urine Mucus Many 05/16/17 10:30 RPR Titer Nonreactive (NONREACTIVE) 05/16/17 07:00 Assessment: 05/17/17 10:41 withdrawal symptom Plan: continue detox,urine for c/s r/o uti,amoxicillin 500 mgs po tid for 7days for uti
[2017-05-17] MEDS: AMOXICILLIN 500 MG CAPSULE (FP) PO SCH ×2 (14:09→22:08)
[2017-05-17] MEDS: THIAMINE HCL 100 MG TABLET (FP) PO SCH (22:08)
[2017-05-17] MEDS: ZOLPIDEM TARTRATE 10 MG TABLET (PARK CARE ONLY) PO PRN (22:08)
[2017-05-18] MEDS: diazePAM 5 MG TABLET PO PRN ×4 (02:30→18:32)
[2017-05-18] MEDS: AMOXICILLIN 500 MG CAPSULE (FP) PO SCH ×3 (05:55→22:10)
--- NOTE | 2017-05-18 09:22 | PN ---
BHS Progress Note (SOAP) Subjective: alert,irritable,anxious,interrupted sleep,pain in the body Objective: 05/18/17 09:24 Vital Signs Temperature 97.7 F 05/18/17 06:30 Pulse Rate 87 05/18/17 06:30 Respiratory Rate 20 05/18/17 06:30 Blood Pressure 106/64 05/18/17 06:30 O2 Sat by Pulse Oximetry (%) 05/18/17 09:26 Assessment: 05/18/17 09:26 withdrawal symptom Plan: continue detox,urine for c/s pending
[2017-05-18] MEDS ORDERED: METHADONE HCL 5 MG TABLET (FOR DETOX USE ONLY) PO ONE (10:00)
[2017-05-18] MEDS: PRENATAL VITAMINS W/ FOLIC ACID TABLET (FP) PO SCH (10:06)
[2017-05-18] MEDS: NICOTINE 14 MG/24 HOURS TOPICAL PATCH TD SCH (10:07)
[2017-05-18] MEDS: CYCLOBENZAPRINE HCL 10 MG TABLET (FP) PO PRN ×2 (10:07→18:32)
[2017-05-18] MEDS: SERTRALINE HCL 50 MG TABLET (FP) PO SCH (10:07)
[2017-05-18] MEDS: hydrOXYzine PAMOATE 50 MG CAPSULE (FP) PO PRN (14:14)
[2017-05-18] MEDS: THIAMINE HCL 100 MG TABLET (FP) PO SCH (22:10)
[2017-05-18] MEDS: ZOLPIDEM TARTRATE 10 MG TABLET (PARK CARE ONLY) PO PRN (22:10)
[2017-05-18] MEDS: IBUPROFEN 400 MG TABLET (FP) PO PRN (22:13)
[2017-05-19] MEDS: AMOXICILLIN 500 MG CAPSULE (FP) PO SCH ×3 (06:26→22:19)
[2017-05-19] MEDS ORDERED: METHADONE HCL 10 MG TABLET (FOR DETOX USE ONLY) PO ONE (10:00)
[2017-05-19] MEDS: PRENATAL VITAMINS W/ FOLIC ACID TABLET (FP) PO SCH (10:08)
[2017-05-19] MEDS: hydrOXYzine PAMOATE 50 MG CAPSULE (FP) PO PRN ×2 (10:08→13:52)
[2017-05-19] MEDS: SERTRALINE HCL 50 MG TABLET (FP) PO SCH (10:08)
[2017-05-19] MEDS: CYCLOBENZAPRINE HCL 10 MG TABLET (FP) PO PRN ×3 (10:08→22:19)
[2017-05-19] MEDS: NICOTINE 14 MG/24 HOURS TOPICAL PATCH TD SCH (10:09)
--- NOTE | 2017-05-19 10:39 | PN ---
BHS Progress Note (SOAP) Subjective: ALERT,IRRITABLE,ANXIOUS,INTERRUPTED SLEEP Objective: 05/19/17 10:38 Vital Signs Temperature 97.9 F 05/19/17 06:00 Pulse Rate 98 H 05/19/17 06:00 Respiratory Rate 16 05/19/17 06:00 Blood Pressure 96/61 05/19/17 06:00 O2 Sat by Pulse Oximetry (%) Assessment: 05/19/17 10:38 WITHDRAWAL SYMPTOM URINE FOR C/S NO GROWTH Plan: CONTINUE DETOX,DISCHARGE IN AM
[2017-05-19] MEDS: THIAMINE HCL 100 MG TABLET (FP) PO SCH (22:18)
[2017-05-19] MEDS: ZOLPIDEM TARTRATE 10 MG TABLET (PARK CARE ONLY) PO PRN (22:18)
[2017-05-20] MEDS ORDERED: METHADONE HCL 5 MG TABLET (FOR DETOX USE ONLY) PO ONE (06:00)
[2017-05-20 06:04] VITALS: BP 92/53; PULSE 97; TEMP 97.9
[2017-05-20] MEDS: AMOXICILLIN 500 MG CAPSULE (FP) PO SCH (06:30)
--- NOTE | 2017-05-20 08:32 | DS ---
[facility] Detox Discharge Summary Admission Date: 05/15/17 Discharge Date: 05/20/17 - History Present History: Opioid Dependence Pertinent Past History: ASTHMA DEPRESSION NICOTINE DEPENDENCE S/P BILATERAL BREAST REDUCTION UTI - Physical Exam Results Vital Signs: Vital Signs Temperature 97.9 F 05/20/17 06:00 Pulse Rate 97 H 05/20/17 06:00 Respiratory Rate 18 05/20/17 06:00 Blood Pressure 92/53 05/20/17 06:00 O2 Sat by Pulse Oximetry (%) - Treatment Hospital Course: Detox Protocol Followed, Detoxed Safely, Responded well, Discharged Condition Good Patient has Accepted a Rehab Referral to: DECLINED - Medication Discharge Medications: Ambulatory Orders Albuterol Sulfate Inhaler - [Ventolin Hfa Inhaler -] 2 inh PO Q4H PRN 02/14/17 Doxepin HCl [[place] -] 50 mg PO BID #60 cap 02/15/17 - Diagnosis (1) Opioid dependence with withdrawal Current Visit: Yes Status: Acute (2) Asthma Current Visit: Yes Status: Chronic Qualifiers: Asthma severity: mild intermittent Asthma complication type: uncomplicated (3) Depression Current Visit: Yes Status: Chronic (4) UTI (urinary tract infection) Current Visit: Yes Status: Acute (5) Post traumatic stress disorder (PTSD) Current Visit: Yes Status: Chronic (6) History of bilateral breast reduction surgery Current Visit: No Status: Chronic
[2017-05-20] MEDS: SERTRALINE HCL 50 MG TABLET (FP) PO SCH (09:33)
[2017-05-20] MEDS: PRENATAL VITAMINS W/ FOLIC ACID TABLET (FP) PO SCH (09:33)
[2017-05-20] MEDS: CYCLOBENZAPRINE HCL 10 MG TABLET (FP) PO PRN (09:34)
[2017-05-20] MEDS: hydrOXYzine PAMOATE 50 MG CAPSULE (FP) PO PRN (09:34)
--- NOTE | 2017-05-20 10:21 | PN ---
S Progress Note Note: ADDENDUM HAVING VAGINAL ITCH,WILL GIVE DIFLUCAN 150 MGS PO ONCE
[2017-05-20] MEDS ORDERED: FLUCONAZOLE 50 MG TABLET PO ONE (11:00)
== END 2017-05-20 11:18 | disposition home or self-care (01) | DRG 897 ==
LOC: YASAS 15:27 → Y6N 19:40
PROVIDERS: ADMIT Internal Medicine; ATTEND Internal Medicine
PROC: HZ2ZZZZ Detoxification Services for Substance Abuse Treatment (ICD-10-PCS; principal; 2017-05-15)
DX: F11.23 Opioid dependence with withdrawal (principal); F32.9 Major depressive disorder, single episode, unspecified; F39 Unspecified mood [affective] disorder; F19.24 Other psychoactive substance dependence with psychoactive substance-induced mood disorder; F43.10 Post-traumatic stress disorder, unspecified; F41.8 Other specified anxiety disorders; G47.00 Insomnia, unspecified; J45.20 Mild intermittent asthma, uncomplicated
CPT/HCPCS: 36415; 80053; 81003; 81015; 85027; 86593; 87086; 93005; 93010

== ENCOUNTER 2017-08-28 14:22 | Inpatient (IN) | payer MEDICARE, OTHER ==
[2017-08-28 16:25] VITALS: BMI 31.5
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
[2017-08-28] MEDS ORDERED: P-EPHED 60MG/TRIPROLIDI 2.5MG TABLET PO PRN (17:13)
[2017-08-28] MEDS ORDERED: MENTHOL/PHENOL 1 EACH UD MM PRN (17:13)
[2017-08-28] MEDS ORDERED: LOPERAMIDE HCL 2 MG CAPSULE PO PRN (17:13)
[2017-08-28] MEDS ORDERED: MAGNESIUM CITRATE 300 ML BOTTLE PO PRN (17:13)
[2017-08-28] MEDS ORDERED: guaiFENesin/D-METHORPHAN HB 10 ML UNIT-DOSE CUPS PO PRN (17:13)
[2017-08-28] MEDS ORDERED: ACETAMINOPHEN 325 MG TABLET (FP) PO PRN (17:13)
[2017-08-28] MEDS ORDERED: NICOTINE POLACRILEX 2 MG GUM BUC PRN (17:13)
[2017-08-28] MEDS ORDERED: MAG HYDROX/AL HYDROX/SIMETH 30 ML UNIT-DOSE CUP PO PRN (17:13)
[2017-08-28] MEDS ORDERED: IBUPROFEN 400 MG TABLET (FP) PO PRN (17:13)
[2017-08-28] MEDS ORDERED: MAGNESIUM HYDROX 2400MG/30ML ORAL SUSPENSION 30 ML CUP PO PRN (17:13)
[2017-08-28] MEDS ORDERED: ALBUTEROL SO4 18 GM HFA INHALER IH PRN (17:16)
[2017-08-28] MEDS ORDERED: COLLOIDAL OATMEAL 1 BAR EACH TP PRN (17:24)
[2017-08-28] MEDS ORDERED: METHADONE HCL 10 MG TABLET (FOR DETOX USE ONLY) PO ONE ×2 (17:45→23:00)
[2017-08-28] MEDS: diazePAM 5 MG TABLET PO PRN ×2 (18:33→22:16)
[2017-08-28] MEDS: NICOTINE 14 MG/24 HOURS TOPICAL PATCH TD SCH (18:39)
[2017-08-28] MEDS: THIAMINE HCL 100 MG TABLET (FP) PO SCH (22:16)
[2017-08-28 23:26] LABS: URINE APPEARANCE CLEAR; URINE BILIRUBIN NEGATIVE (NEGATIVE); URINE BLOOD NEGATIVE (NEGATIVE); URINE COLOR LTYELLOW; URINE GLUCOSE (UA) NEGATIVE (NEGATIVE); URINE KETONE NEGATIVE (NEGATIVE); URINE LEUK ESTERASE NEGATIVE (NEGATIVE); URINE NITRITE NEGATIVE (NEGATIVE); URINE PROTEIN NEGATIVE (NEGATIVE); URINE UROBILINOGEN NEGATIVE mg/dL (0.2-1.0)
--- NOTE | 2017-08-29 09:43 | PN ---
BHS COWS - Scale Resting Pulse: 0= [place] 80 or Below Sweatin= Chills/Flushing Restless Observation: 3= Extraneous Movement Pupil Size: 1= Pupils >than Normal Bone or Joint Aches: 2= Severe Diffuse Aches Runny Nose/ Eye Tearin= Runny Nose/Eyes GI Upset > 30mins: 3= Vomiting/Diarrhea Tremor Observation of Outstretched Hands: 2= Slight Tremor Visible Yawning Observation: 2= >3x During Session Anxiety or Irritability: 2=Irritable/Anxious Goose Flesh Skin: 0=Smooth Skin COWS Score: 18 BHS Progress Note (SOAP) Subjective: ALERT,IRRITABLE,ANXIOUS,INTERRUPTED SLEEP,TREMOR,PAIN IN THE BODY AND BACK Objective: 08/29/17 09:42 Vital Signs Temperature 98.1 F 08/29/17 06:00 Pulse Rate 78 08/29/17 06:00 Respiratory Rate 18 08/29/17 06:00 Blood Pressure 96/66 08/29/17 06:00 O2 Sat by Pulse Oximetry (%) EKG NSR Laboratory Last Values Urine Color Ltyellow 08/28/17 23:05 Urine Appearance Clear 08/28/17 23:05 Urine pH 6.0 (5.0-8.0) 08/28/17 23:05 Ur Specific [place] 1.021 (1.001-1.035) 08/28/17 23:05 Urine Protein Negative (NEGATIVE) 08/28/17 23:05 Urine Glucose (UA) Negative (NEGATIVE) 08/28/17 23:05 Urine Ketones Negative (NEGATIVE) 08/28/17 23:05 Urine Blood Negative (NEGATIVE) 08/28/17 23:05 Urine Nitrite Negative (NEGATIVE) 08/28/17 23:05 Urine Bilirubin Negative (NEGATIVE) 08/28/17 23:05 Urine Urobilinogen Negative mg/dL (0.2-1.0) 08/28/17 23:05 Ur Leukocyte Esterase Negative (NEGATIVE) 08/28/17 23:05 LABS PENDING Assessment: 08/29/17 09:42 WITHDRAWAL SYMPTOM Plan: CONTINUE DETOX
[2017-08-29] MEDS ORDERED: METHADONE HCL 10 MG TABLET (FOR DETOX USE ONLY) PO ONE (10:00)
[2017-08-29 10:19] LABS: HEMATOCRIT 40.7 % (32.4-45.2); HEMOGLOBIN 13.4 GM/dL (10.7-15.3); MCH 29.2 pg (25.7-33.7); MEAN CELL VOLUME 88.6 fl (80-96); PLATELET COUNT 324 K/MM3 (134-434); RBC 4.59 M/mm3 (3.60-5.2); RDW 13.3 % (11.6-15.6); WHITE BLOOD COUNT 9.1 K/mm3 (4.0-10.0)
[2017-08-29 10:29] LABS: CHLORIDE 108 mmol/L (98-107); POTASSIUM 4.4 mmol/L (3.5-5.1); SODIUM 140 mmol/L (136-145)
[2017-08-29] MEDS: PRENATAL VITAMINS W/ FOLIC ACID TABLET (FP) PO SCH (10:30)
[2017-08-29] MEDS: NICOTINE 14 MG/24 HOURS TOPICAL PATCH TD SCH (10:31)
[2017-08-29] MEDS: CYCLOBENZAPRINE HCL 10 MG TABLET (FP) PO PRN (10:31)
[2017-08-29] MEDS: cloNIDine HCL 0.1 MG TABLET PO SCH ×2 (10:31→22:22)
[2017-08-29] MEDS: diazePAM 5 MG TABLET PO PRN ×3 (10:36→20:41)
[2017-08-29] MEDS ORDERED: ALBUTEROL SO4 18 GM HFA INHALER IH PRN (10:36)
[2017-08-29] MEDS: SERTRALINE HCL 50 MG TABLET (FP) PO SCH (10:37)
[2017-08-29 10:40] LABS: ALBUMIN 3.1 g/dl (3.4-5.0); ALK PHOS 70 U/L (45-117); ANION GAP 8 (8-16); BILIRUBIN,TOTAL 0.1 mg/dL (0.2-1.0); BLOOD UREA NITROGEN 12 mg/dL (7-18); CALCIUM 8.6 mg/dL (8.5-10.1); CO2 24 mmol/L (21-32); CREATININE 0.6 mg/dL (0.55-1.02); GLUCOSE,RANDOM 91 mg/dL (74-106); SGOT/AST 13 U/L (15-37); SGPT/ALT 17 U/L (12-78); TOT PROT 6.2 g/dl (6.4-8.2)
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
[2017-08-29] MEDS: hydrOXYzine PAMOATE 50 MG CAPSULE (FP) PO PRN (19:02)
[2017-08-29] MEDS: ZOLPIDEM TARTRATE 10 MG TABLET (PARK CARE ONLY) PO PRN (22:22)
[2017-08-29] MEDS: THIAMINE HCL 100 MG TABLET (FP) PO SCH (22:22)
[2017-08-30] MEDS: CYCLOBENZAPRINE HCL 10 MG TABLET (FP) PO PRN ×3 (05:48→22:20)
[2017-08-30] MEDS: diazePAM 5 MG TABLET PO PRN ×4 (05:48→22:26)
[2017-08-30] MEDS ORDERED: METHADONE HCL 5 MG TABLET (FOR DETOX USE ONLY) PO ONE (10:00)
[2017-08-30] MEDS: cloNIDine HCL 0.1 MG TABLET PO SCH ×2 (10:29→22:20)
[2017-08-30] MEDS: PRENATAL VITAMINS W/ FOLIC ACID TABLET (FP) PO SCH (10:29)
[2017-08-30] MEDS: NICOTINE 14 MG/24 HOURS TOPICAL PATCH TD SCH (10:29)
--- NOTE | 2017-08-30 10:41 | PN ---
BHS COWS - Scale Resting Pulse: 0= [place] 80 or Below Sweatin= Chills/Flushing Restless Observation: 3= Extraneous Movement Pupil Size: 1= Pupils >than Normal Bone or Joint Aches: 2= Severe Diffuse Aches Runny Nose/ Eye Tearin= Runny Nose/Eyes GI Upset > 30mins: 2= Nausea/Diarrhea Tremor Observation of Outstretched Hands: 2= Slight Tremor Visible Yawning Observation: 1= 1-2x During Session Anxiety or Irritability: 2=Irritable/Anxious Goose Flesh Skin: 0=Smooth Skin COWS Score: 16 S Progress Note (SOAP) Subjective: ALERT,IRRITABLE,ANXIOUS,INTERRUPTED SLEEP,PAIN IN THE BODY,BACK,TREMOR Objective: 08/30/17 10:40 Vital Signs Temperature 97.9 F 08/30/17 09:50 Pulse Rate 86 08/30/17 09:50 Respiratory Rate 18 08/30/17 09:50 Blood Pressure 117/66 08/30/17 09:50 O2 Sat by Pulse Oximetry (%) Laboratory Last Values WBC 9.1 K/mm3 (4.0-10.0) D 08/29/17 07:00 RBC 4.59 M/mm3 (3.60-5.2) 08/29/17 07:00 Hgb 13.4 GM/dL (10.7-15.3) D 08/29/17 07:00 Hct 40.7 % (32.4-45.2) D 08/29/17 07:00 MCV 88.6 fl (80-96) 08/29/17 07:00 MCH 29.2 pg (25.7-33.7) 08/29/17 07:00 MCHC 33.0 g/dl (32.0-36.0) 08/29/17 07:00 RDW 13.3 % (11.6-15.6) 08/29/17 07:00 Plt Count 324 K/MM3 (134-434) 08/29/17 07:00 MPV 8.0 fl (7.5-11.1) 08/29/17 07:00 Sodium 140 mmol/L (136-145) 08/29/17 07:00 Potassium 4.4 mmol/L (3.5-5.1) 08/29/17 07:00 Chloride 108 mmol/L (98-107) H 08/29/17 07:00 Carbon Dioxide 24 mmol/L (21-32) 08/29/17 07:00 Anion Gap 8 (8-16) 08/29/17 07:00 BUN 12 mg/dL (7-18) 08/29/17 07:00 Creatinine 0.6 mg/dL (0.55-1.02) 08/29/17 07:00 Creat Clearance w eGFR > 60 (>60) 08/29/17 07:00 Random Glucose 91 mg/dL (74-106) 08/29/17 07:00 Calcium 8.6 mg/dL (8.5-10.1) 08/29/17 07:00 Total Bilirubin 0.1 mg/dL (0.2-1.0) L 08/29/17 07:00 AST 13 U/L (15-37) L 08/29/17 07:00 ALT 17 U/L (12-78) 08/29/17 07:00 Alkaline Phosphatase 70 U/L (45-117) 08/29/17 07:00 Total Protein 6.2 g/dl (6.4-8.2) L 08/29/17 07:00 Albumin 3.1 g/dl (3.4-5.0) L 08/29/17 07:00 Urine Color Ltyellow 08/28/17 23:05 Urine Appearance Clear 08/28/17 23:05 Urine pH 6.0 (5.0-8.0) 08/28/17 23:05 Ur Specific [place] 1.021 (1.001-1.035) 08/28/17 23:05 Urine Protein Negative (NEGATIVE) 08/28/17 23:05 Urine Glucose (UA) Negative (NEGATIVE) 08/28/17 23:05 Urine Ketones Negative (NEGATIVE) 08/28/17 23:05 Urine Blood Negative (NEGATIVE) 08/28/17 23:05 Urine Nitrite Negative (NEGATIVE) 08/28/17 23:05 Urine Bilirubin Negative (NEGATIVE) 08/28/17 23:05 Urine Urobilinogen Negative mg/dL (0.2-1.0) 08/28/17 23:05 Ur Leukocyte Esterase Negative (NEGATIVE) 08/28/17 23:05 RPR Titer Nonreactive (NONREACTIVE) 08/29/17 07:00 Hepatitis C Antibody <0.1 s/co ratio (0.0-0.9) 08/28/17 07:00 HIV 1&2 Antibody Screen Negative 08/29/17 07:00 HIV P24 Antigen Negative 08/29/17 07:00 Assessment: 08/30/17 10:41 WITHDRAWAL SYMPTOM Plan: CONTINUE DETOX
[2017-08-30] MEDS: SERTRALINE HCL 50 MG TABLET (FP) PO SCH (10:55)
--- NOTE | 2017-08-30 10:56 | EKG ---
Test Reason : Blood Pressure : / mmHG Vent. Rate : 082 BPM Atrial Rate : 082 BPM P-R Int : 164 ms QRS Dur : 092 ms QT Int : 388 ms P-R-T Axes : 036 030 017 degrees QTc Int : 453 ms NORMAL SINUS RHYTHM NORMAL ECG WHEN COMPARED WITH ECG OF 15-MAY-2017 20:53, NO SIGNIFICANT CHANGE WAS FOUND Confirmed by KLARISSA LANDIS MD ([id number]) on 08/30/2017 10:56:25 AM Referred By: Confirmed By:KLARISSA LANDIS MD
[2017-08-30] MEDS: THIAMINE HCL 100 MG TABLET (FP) PO SCH (22:20)
[2017-08-30] MEDS: ZOLPIDEM TARTRATE 10 MG TABLET (PARK CARE ONLY) PO PRN (22:20)
[2017-08-31] MEDS: diazePAM 5 MG TABLET PO PRN ×3 (02:35→17:07)
[2017-08-31] MEDS ORDERED: METHADONE HCL 5 MG TABLET (FOR DETOX USE ONLY) PO ONE (10:00)
[2017-08-31] MEDS: NICOTINE 14 MG/24 HOURS TOPICAL PATCH TD SCH (10:29)
[2017-08-31] MEDS: cloNIDine HCL 0.1 MG TABLET PO SCH ×2 (10:29→22:35)
[2017-08-31] MEDS: SERTRALINE HCL 50 MG TABLET (FP) PO SCH (10:29)
[2017-08-31] MEDS: CYCLOBENZAPRINE HCL 10 MG TABLET (FP) PO PRN ×2 (10:29→22:35)
[2017-08-31] MEDS: PRENATAL VITAMINS W/ FOLIC ACID TABLET (FP) PO SCH (10:29)
--- NOTE | 2017-08-31 10:44 | PN ---
BHS Progress Note (SOAP) Subjective: ALERT,IRRITABLE,ANXIOUS,INTERRUPTED SLEEP,TREMOR,PAIN IN THE BODY Objective: 08/31/17 10:42 Vital Signs Temperature 98.1 F 08/31/17 10:07 Pulse Rate 72 08/31/17 10:07 Respiratory Rate 18 08/31/17 10:07 Blood Pressure 99/72 08/31/17 10:07 O2 Sat by Pulse Oximetry (%) Assessment: 08/31/17 10:42 WITHDRAWAL SYMPTOM Plan: CONTINUE DETOX
[2017-08-31] MEDS: ZOLPIDEM TARTRATE 10 MG TABLET (PARK CARE ONLY) PO PRN (22:35)
[2017-08-31] MEDS: THIAMINE HCL 100 MG TABLET (FP) PO SCH (22:36)
[2017-08-31] MEDS: hydrOXYzine PAMOATE 50 MG CAPSULE (FP) PO PRN (22:36)
[2017-09-01] MEDS ORDERED: METHADONE HCL 10 MG TABLET (FOR DETOX USE ONLY) PO ONE (10:00)
[2017-09-01] MEDS: SERTRALINE HCL 50 MG TABLET (FP) PO SCH (10:25)
[2017-09-01] MEDS: PRENATAL VITAMINS W/ FOLIC ACID TABLET (FP) PO SCH (10:25)
[2017-09-01] MEDS: NICOTINE 14 MG/24 HOURS TOPICAL PATCH TD SCH (10:25)
[2017-09-01] MEDS: cloNIDine HCL 0.1 MG TABLET PO SCH ×2 (10:25→23:14)
[2017-09-01] MEDS: hydrOXYzine PAMOATE 50 MG CAPSULE (FP) PO PRN ×2 (10:26→16:55)
[2017-09-01] MEDS: CYCLOBENZAPRINE HCL 10 MG TABLET (FP) PO PRN ×2 (10:26→16:55)
--- NOTE | 2017-09-01 11:11 | PN ---
S Progress Note (SOAP) Subjective: ALERT,IRRITABLE,ANXIOUS,INTERRUPTED SLEEP Objective: 09/01/17 11:10 Vital Signs Temperature 97.9 F 09/01/17 05:58 Pulse Rate 61 09/01/17 05:58 Respiratory Rate 16 09/01/17 05:58 Blood Pressure 90/51 09/01/17 05:58 O2 Sat by Pulse Oximetry (%) Assessment: 09/01/17 11:10 WITHDRAWAL SYMPTOM Plan: CONTINUE DETOX,DISCHARGE IN AM
[2017-09-01] MEDS: ZOLPIDEM TARTRATE 10 MG TABLET (PARK CARE ONLY) PO PRN (21:55)
[2017-09-01] MEDS: THIAMINE HCL 100 MG TABLET (FP) PO SCH (22:39)
[2017-09-02] MEDS ORDERED: METHADONE HCL 5 MG TABLET (FOR DETOX USE ONLY) PO ONE (06:00)
[2017-09-02] MEDS: CYCLOBENZAPRINE HCL 10 MG TABLET (FP) PO PRN (06:03)
--- NOTE | 2017-09-02 08:51 | DS ---
<Desire Prado - Last Filed: 09/02/17 08:49> [facility] Detox Discharge Summary Admission Date: 08/28/17 Discharge Date: 09/02/17 - History Pertinent Past History: Asthma - Physical Exam Results Vital Signs: Vital Signs Temperature 98.1 F 09/02/17 06:00 Pulse Rate 77 09/02/17 06:00 Respiratory Rate 16 09/02/17 06:00 Blood Pressure 99/62 09/02/17 06:00 O2 Sat by Pulse Oximetry (%) - Treatment Hospital Course: Detox Protocol Followed, Detoxed Safely, Responded well, Discharged Condition Good, Rehab Referral Accepted Patient has Accepted a Rehab Referral to: O/P follow up @ NA meetings and with PMD - Medication Discharge Medications: Ambulatory Orders Zolpidem Tartrate [Ambien] 10 mg PO HS 08/28/17 Sertraline HCl [Zoloft -] 50 mg PO DAILY #30 tablet 09/01/17 Albuterol Sulfate Inhaler - [Ventolin HFA Inhaler -] 2 inh PO Q4H PRN #1 inh 05/10 - Diagnosis (1) Opioid dependence with withdrawal Current Visit: Yes Status: Acute (2) Asthma Current Visit: Yes Status: Chronic QualifierTitle: Asthma severity: mild Asthma complication type: uncomplicated (3) Nicotine dependence Current Visit: Yes Status: Chronic QualifierTitle: Nicotine product type: cigarettes Substance use status: uncomplicated Qualified Code(s): F17.210 - Nicotine dependence, cigarettes, uncomplicated - AMA Did Patient Leave Against Medical Advice: No <Marcelino Ibrahim - Last Filed: 09/02/17 10:07> [facility] Detox Discharge Summary Admission Date: 08/28/17 - History Present History: Opioid Dependence - Physical Exam Results Vital Signs: Vital Signs Temperature 98.1 F 09/02/17 06:00 Pulse Rate 77 09/02/17 06:00 Respiratory Rate 16 09/02/17 06:00 Blood Pressure 99/62 09/02/17 06:00 O2 Sat by Pulse Oximetry (%)
[2017-09-02] MEDS: NICOTINE 14 MG/24 HOURS TOPICAL PATCH TD SCH (10:42)
[2017-09-02] MEDS: PRENATAL VITAMINS W/ FOLIC ACID TABLET (FP) PO SCH (10:42)
[2017-09-02] MEDS: cloNIDine HCL 0.1 MG TABLET PO SCH (10:42)
[2017-09-02] MEDS: SERTRALINE HCL 50 MG TABLET (FP) PO SCH (10:42)
[2017-09-02] MEDS: hydrOXYzine PAMOATE 50 MG CAPSULE (FP) PO PRN (10:44)
[2017-09-02 11:07] VITALS: BP 133/77; PULSE 134; TEMP 97.2
== END 2017-09-02 10:46 | disposition home or self-care (01) | DRG 951 ==
LOC: YASAS 14:22 → Y6N 17:26
PROVIDERS: ADMIT Internal Medicine; ATTEND Internal Medicine
PROC: HZ2ZZZZ Detoxification Services for Substance Abuse Treatment (ICD-10-PCS; principal; 2017-08-28)
DX: F17.210 Nicotine dependence, cigarettes, uncomplicated (principal); F33.9 Major depressive disorder, recurrent, unspecified; F19.24 Other psychoactive substance dependence with psychoactive substance-induced mood disorder; F43.10 Post-traumatic stress disorder, unspecified; J45.909 Unspecified asthma, uncomplicated; G47.00 Insomnia, unspecified; Z98.890 Other specified postprocedural states
CPT/HCPCS: 36415; 80053; 81003; 85027; 86593; 86803; 87389; 93005; 93010; J0735

== ENCOUNTER 2017-11-10 12:51 | Inpatient (IN) | payer MEDICARE, OTHER ==
[2017-11-10 13:02] VITALS: BMI 31.6
--- NOTE | 2017-11-10 16:45 | HP ---
COWS - Scale Resting Pulse: 2= [place] 101-120 Sweatin= Chills/Flushing Restless Observation: 1= Difficult to Sit Still Pupil Size: 2= Moderately Dilated Bone or Joint Aches: 1= Mild Discomfort Runny Nose/ Eye Tearin= Nasal Congestion GI Upset > 30mins: 2= Nausea/Diarrhea Tremor Observation: 2= Slight Tremor Visible Yawning Observation: 1= 1-2x During Session Anxiety or Irritability: 1=Feels Anxious/Irritable Goose Flesh Skin: 0=Smooth Skin COWS Score: 14 Admission ROS BHS - HPI Chief Complaint: C/o withdrawal symptoms. Allergies/Adverse Reactions: Allergies Allergy/AdvReac Type Severity Reaction Status Date / Time No Known Allergies Allergy Verified 11/10/17 17:18 History of Present Illness: 27 yof with a 2 year history of percocet use disorder. Last used 10 mg percocet PO at 6 am and presently c/o withdrawal symptoms. Last detox was 09/02/17 and remained opiate free for approximately 3 weeks. Exam Limitations: No Limitations - Ebola screening Have you traveled outside of the country in the last 21 days: No (N) Have you had contact with anyone from an Ebola affected area: No Have you been sick,other than usual withdrawal symptoms: No Do you have a fever: No - Review of Systems Constitutional: See HPI, Loss of Appetite, Changes in sleep (Difficulty falling asleep. Takes prescribed Ambien almost every night for about 3 years.) EENT: reports: No Symptoms Reported Respiratory: reports: No Symptoms reported Cardiac: reports: No Symptoms Reported GI: reports: Poor Appetite (Denies weight loss.) : reports: No Symptoms Reported Musculoskeletal: reports: Other (c/o low back pain only when withdrawing.) Integumentary: reports: No Symptoms Reported Neuro: reports: No Symptoms reported Endocrine: reports: No Symptoms Reported Hematology: reports: No Symptoms Reported Psychiatric: reports: No Sypmtoms Reported, Orientated x3 Patient History - Patient Medical History Hx Anemia: No Hx Asthma: Yes (No recent exacerbations) Hx Chronic Obstructive Pulmonary Disease (COPD): No Hx Cancer: No Hx Cardiac Disorders: No Hx Congestive Heart Failure: No Hx Hypertension: No Hx Hypercholesterolemia: No Hx Pacemaker: No HX Cerebrovascular Accident: No Hx Seizures: No Hx Dementia: No Hx Diabetes: No Hx Gastrointestinal Disorders: No Hx Liver Disease: No Hx Genitourinary Disorders: No Hx Sexually Transmitted Disorders: No Hx Renal Disease (ESRD): No Hx Thyroid Disease: No Hx Human Immunodeficiency Virus (HIV): No (Negative 02/06 ) Hx Hepatitis C: No Hx Depression: Yes Hx Suicide Attempt: No Hx Bipolar Disorder: No Hx Schizophrenia: No - Patient Surgical History Past Surgical History: No Hx Neurologic Surgery: No Hx Cataract Extraction: No Hx Cardiac Surgery: No Hx Lung Surgery: No Hx Breast Surgery: Yes (Breast reduction 2015) Hx Breast Biopsy: No Hx Abdominal Surgery: No Hx Appendectomy: No Hx Cholecystectomy: No Hx Genitourinary Surgery: No Hx Section: No Hx Orthopedic Surgery: No Other Surgical History: liposuction 2016 Anesthesia Reaction: No - PPD History Previous Implant?: Yes Documented Results: Negative w/proof Implanted On Prior [facility] Admission?: Yes Date: 10/15/16 Results: 0 mm PPD to be Administered?: Yes - Reproductive History Patient is a Female of Child Bearing Age (11 -55 yrs old): Yes Last Menstrual Period: 11/10/17 Patient : No - Smoking Cessation Smoking history: Current some day smoker Have you smoked in the past 12 months: Yes Aproximately how many cigarettes per day: 4 Hx Chewing Tobacco Use: No Initiated information on smoking cessation: Yes 'Breaking Loose' booklet given: 11/10/17 - Substance & Tx. History Hx Alcohol Use: No Hx Substance Use: Yes Substance Use Type: Marijuana (Rarely uses. ), Opiates (Uses percocet 10 - 10 mg tab PO daily for 2 years. ), Prescribed (States uses Klonpins 1 mg as needed for anxiety, as prescribed.) Hx Substance Use Treatment: Yes (Detox @ [facility] 08/2017) - Substances Abused Percocet Route: Oral Frequency: Daily Amount used: 10 - 10 mg tabs daily Age of first use: 25 Date of Last Use: 11/10/17 Marijuana/Hashish Route: Inhalation Frequency: 1-3 times last 30 days Amount used: 2 puffs Age of first use: 25 Date of Last Use: 11/09/17 Family Disease History - Family Disease History Family Disease History: Respiratory: Mother (alive, Asthma ), Other: Father ( alive and well) Other Family History: Two maternal uncles have DM Admission Physical Exam BHS - Vital Signs Vital Signs: Vital Signs - 24 hr 04/20/18 12:59 Temperature 97.8 F Pulse Rate 116 H Respiratory 18 Rate Blood Pressure 135/85 - Physical General Appearance: Yes: Appropriately Dressed, Moderate Distress, Tremorous, Irritable, Sweating HEENTM: Yes: EOMI, Hearing grossly Normal, Normocephalic, Normal Voice, ZAY, Pharynx Normal, Other (MILD NASAL CONGESTION) Respiratory: Yes: Within Normal Limits Neck: Yes: Within Normal Limits Breast: Yes: Breast Exam Deferred Cardiology: Yes: Regular Rhythm, S1, S2 (Denies chest pain.), Tachycardia Abdominal: Yes: Non Tender, Soft, Increased Bowel Sounds Genitourinary: Yes: Within Normal Limits Back: Yes: Normal Inspection Musculoskeletal: Yes: full range of Motion, Gait Steady, Back pain (FROM spine. 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 (2) Asthma Current Visit: Yes Status: Chronic Qualifiers: Asthma severity: mild Asthma complication type: uncomplicated (3) Nicotine dependence Current Visit: Yes Status: Chronic Qualifiers: Nicotine product type: cigarettes Substance use status: uncomplicated Qualified Code(s): F17.210 - Nicotine dependence, cigarettes, uncomplicated Cleared for Admission [facility] - Detox or Rehab [facility] Level of Care: Medically Supervised Detox Regimen/Protocol: Methadone [facility] Breath Alcohol Content Breath Alcohol Content: 0 Urine Pregancy Test - Result Urine Test Results: Negative- NO Line Present Urine Drug Screen - Results Drug Screen Negative: No Urine Drug Screen Results: THC-Marijuana, JENNA-Cocaine, TCA-Tricyclic Antidepress , OXY-Oxycodone
[2017-11-10] MEDS ORDERED: MENTHOL/PHENOL 1 EACH UD MM PRN (18:03)
[2017-11-10] MEDS ORDERED: ACETAMINOPHEN 325 MG TABLET (FP) PO PRN (18:03)
[2017-11-10] MEDS ORDERED: MAGNESIUM HYDROX 2400MG/30ML ORAL SUSPENSION 30 ML CUP PO PRN (18:03)
[2017-11-10] MEDS ORDERED: NICOTINE POLACRILEX 2 MG GUM BUC PRN (18:03)
[2017-11-10] MEDS ORDERED: MAG HYDROX/AL HYDROX/SIMETH 30 ML UNIT-DOSE CUP PO PRN (18:03)
[2017-11-10] MEDS ORDERED: guaiFENesin/D-METHORPHAN HB 10 ML UNIT-DOSE CUPS PO PRN (18:03)
[2017-11-10] MEDS ORDERED: IBUPROFEN 400 MG TABLET (FP) PO PRN (18:03)
[2017-11-10] MEDS ORDERED: MAGNESIUM CITRATE 300 ML BOTTLE PO PRN (18:03)
[2017-11-10] MEDS ORDERED: P-EPHED 60MG/TRIPROLIDI 2.5MG TABLET PO PRN (18:03)
[2017-11-10] MEDS ORDERED: LOPERAMIDE HCL 2 MG CAPSULE PO PRN (18:03)
[2017-11-10] MEDS ORDERED: ALBUTEROL SO4 18 GM HFA INHALER IH PRN (18:12)
[2017-11-10] MEDS ORDERED: METHADONE HCL 10 MG TABLET (FOR DETOX USE ONLY) PO ONE ×2 (18:30→23:00)
[2017-11-10] MEDS: diazePAM 5 MG TABLET PO PRN (19:57)
[2017-11-10] MEDS ORDERED: CYCLOBENZAPRINE HCL 5 MG TABLET PO SCH (22:00)
[2017-11-10] MEDS: THIAMINE HCL 100 MG TABLET (FP) PO SCH (22:21)
[2017-11-10] MEDS: CYCLOBENZAPRINE HCL 5 MG TABLET PO PRN (22:24)
[2017-11-11] MEDS: diazePAM 5 MG TABLET PO PRN ×4 (00:56→19:14)
[2017-11-11] MEDS ORDERED: TRIMETHOBENZAMIDE HCL 200MG/2ML INJ IM PRN (01:14)
--- NOTE | 2017-11-11 09:52 | EKG ---
Test Reason : Blood Pressure : / mmHG Vent. Rate : 088 BPM Atrial Rate : 088 BPM P-R Int : 150 ms QRS Dur : 086 ms QT Int : 378 ms P-R-T Axes : 043 034 009 degrees QTc Int : 457 ms NORMAL SINUS RHYTHM NORMAL ECG WHEN COMPARED WITH ECG OF 28-AUG-2017 18:51, NO SIGNIFICANT CHANGE WAS FOUND Confirmed by KLARISSA LANDIS MD ([id number]) on 11/11/2017 9:52:22 AM Referred By: Confirmed By:KLARISSA ALNDIS MD
[2017-11-11 09:58] LABS: HEMATOCRIT 41.1 % (32.4-45.2); MCH 30.8 pg (25.7-33.7); MCHC 33.9 g/dl (32.0-36.0); MEAN CELL VOLUME 90.8 fl (80-96); MEAN PLT VOLUME 8.8 fl (7.5-11.1); PLATELET COUNT 372 K/MM3 (134-434); RBC 4.53 M/mm3 (3.60-5.2); WHITE BLOOD COUNT 7.2 K/mm3 (4.0-10.0)
[2017-11-11] MEDS ORDERED: METHADONE HCL 10 MG TABLET (FOR DETOX USE ONLY) PO ONE (10:00)
[2017-11-11 10:16] LABS: CHLORIDE 109 mmol/L (98-107); POTASSIUM 3.9 mmol/L (3.5-5.1); SODIUM 140 mmol/L (136-145)
[2017-11-11] MEDS: PRENATAL VITAMINS W/ FOLIC ACID TABLET (FP) PO SCH (10:22)
[2017-11-11] MEDS: NICOTINE 14 MG/24 HOURS TOPICAL PATCH TD SCH (10:24)
[2017-11-11] MEDS ORDERED: ALBUTEROL SO4 18 GM HFA INHALER IH ONE (10:25)
[2017-11-11] MEDS: CYCLOBENZAPRINE HCL 5 MG TABLET PO PRN ×2 (10:28→19:13)
[2017-11-11 10:35] LABS: ALBUMIN 3.6 g/dl (3.4-5.0); ALK PHOS 79 U/L (45-117); ANION GAP 9 (8-16); BILIRUBIN,TOTAL 0.1 mg/dL (0.2-1.0); BLOOD UREA NITROGEN 9 mg/dL (7-18); CALCIUM 8.8 mg/dL (8.5-10.1); CO2 22 mmol/L (21-32); CREATININE 0.7 mg/dL (0.55-1.02); GLUCOSE,RANDOM 75 mg/dL (74-106); SGOT/AST 23 U/L (15-37); SGPT/ALT 35 U/L (12-78); TOT PROT 7.2 g/dl (6.4-8.2)
[2017-11-11] MEDS ORDERED: ONDANSETRON 8 MG TABLET (FP) PO PRN (12:14)
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
[2017-11-11] MEDS: ONDANSETRON *ODT* 4 MG TABLET SL PRN (12:35)
--- NOTE | 2017-11-11 13:22 | PN ---
BHS COWS - Scale Resting Pulse: 1= [place] 81-100 Sweatin=Flushed/Facial Moisture Restless Observation: 1= Difficult to Sit Still Pupil Size: 0= Normal to Room Light Bone or Joint Aches: 1= Mild Discomfort Runny Nose/ Eye Tearin= Nasal Congestion GI Upset > 30mins: 3= Vomiting/Diarrhea Tremor Observation of Outstretched Hands: 2= Slight Tremor Visible Yawning Observation: 1= 1-2x During Session Anxiety or Irritability: 2=Irritable/Anxious Goose Flesh Skin: 0=Smooth Skin COWS Score: 14 BHS Progress Note (SOAP) Subjective: sleep disturbance sweats "Nausea Objective: 11/11/17 13:19 A & O x 3 Sweats Vital Signs Temperature 97.9 F 11/11/17 09:33 Pulse Rate 91 H 11/11/17 09:33 Respiratory Rate 18 11/11/17 09:33 Blood Pressure 142/85 11/11/17 09:33 O2 Sat by Pulse Oximetry (%) Laboratory Last Values WBC 7.2 K/mm3 (4.0-10.0) 11/11/17 06:00 RBC 4.53 M/mm3 (3.60-5.2) 11/11/17 06:00 Hgb 14.0 GM/dL (10.7-15.3) 11/11/17 06:00 Hct 41.1 % (32.4-45.2) 11/11/17 06:00 MCV 90.8 fl (80-96) 11/11/17 06:00 MCH 30.8 pg (25.7-33.7) 11/11/17 06:00 MCHC 33.9 g/dl (32.0-36.0) 11/11/17 06:00 RDW 14.0 % (11.6-15.6) 11/11/17 06:00 Plt Count 372 K/MM3 (134-434) 11/11/17 06:00 MPV 8.8 fl (7.5-11.1) 11/11/17 06:00 Sodium 140 mmol/L (136-145) 11/11/17 06:00 Potassium 3.9 mmol/L (3.5-5.1) 11/11/17 06:00 Chloride 109 mmol/L (98-107) H 11/11/17 06:00 Carbon Dioxide 22 mmol/L (21-32) 11/11/17 06:00 Anion Gap 9 (8-16) 11/11/17 06:00 BUN 9 mg/dL (7-18) 11/11/17 06:00 Creatinine 0.7 mg/dL (0.55-1.02) 11/11/17 06:00 Creat Clearance w eGFR > 60 (>60) 11/11/17 06:00 Random Glucose 75 mg/dL (74-106) 11/11/17 06:00 Calcium 8.8 mg/dL (8.5-10.1) 11/11/17 06:00 Total Bilirubin 0.1 mg/dL (0.2-1.0) L 11/11/17 06:00 AST 23 U/L (15-37) 11/11/17 06:00 ALT 35 U/L (12-78) 11/11/17 06:00 Alkaline Phosphatase 79 U/L (45-117) 11/11/17 06:00 Total Protein 7.2 g/dl (6.4-8.2) 11/11/17 06:00 Albumin 3.6 g/dl (3.4-5.0) 11/11/17 06:00 RPR Titer Nonreactive (NONREACTIVE) 11/11/17 06:00 labs noted, pending UA Assessment: 11/11/17 13:22 withdrawal sx Plan: continue detox
[2017-11-11] MEDS: QUEtiapine FUMARATE 50 MG TABLET PO SCH (22:07)
[2017-11-11] MEDS: THIAMINE HCL 100 MG TABLET (FP) PO SCH (22:07)
[2017-11-11] MEDS: MELATONIN 5 MG TABLETS PO PRN (22:08)
[2017-11-12] MEDS ORDERED: METHADONE HCL 5 MG TABLET (FOR DETOX USE ONLY) PO ONE (10:00)
[2017-11-12] MEDS: PRENATAL VITAMINS W/ FOLIC ACID TABLET (FP) PO SCH (10:16)
[2017-11-12] MEDS: SERTRALINE HCL 50 MG TABLET (FP) PO SCH (10:16)
[2017-11-12] MEDS: NICOTINE 14 MG/24 HOURS TOPICAL PATCH TD SCH (10:17)
[2017-11-12] MEDS: CYCLOBENZAPRINE HCL 5 MG TABLET PO PRN ×2 (10:18→22:07)
[2017-11-12] MEDS: diazePAM 5 MG TABLET PO PRN ×3 (10:21→20:13)
[2017-11-12] MEDS: hydrOXYzine PAMOATE 50 MG CAPSULE (FP) PO PRN (13:02)
[2017-11-12] MEDS: ONDANSETRON *ODT* 4 MG TABLET SL PRN (13:03)
[2017-11-12] MEDS ORDERED: COLLOIDAL OATMEAL 1 BAR EACH TP PRN (14:41)
[2017-11-12] MEDS: THIAMINE HCL 100 MG TABLET (FP) PO SCH (22:07)
[2017-11-12] MEDS: QUEtiapine FUMARATE 50 MG TABLET PO SCH (22:07)
[2017-11-12] MEDS: MELATONIN 5 MG TABLETS PO PRN (22:08)
[2017-11-13] MEDS ORDERED: METHADONE HCL 5 MG TABLET (FOR DETOX USE ONLY) PO ONE (10:00)
--- NOTE | 2017-11-13 10:16 | PN ---
BHS COWS - Scale Resting Pulse: 0= [place] 80 or Below Sweatin= Chills/Flushing Restless Observation: 1= Difficult to Sit Still Pupil Size: 2= Moderately Dilated Bone or Joint Aches: 1= Mild Discomfort Runny Nose/ Eye Tearin= Nasal Congestion GI Upset > 30mins: 1= Stomach Cramp Tremor Observation of Outstretched Hands: 2= Slight Tremor Visible Yawning Observation: 2= >3x During Session Anxiety or Irritability: 2=Irritable/Anxious Goose Flesh Skin: 0=Smooth Skin COWS Score: 13 BHS Progress Note (SOAP) Subjective: joint pain body ache sweat restlessness trouble sleep at night Objective: 11/12/17 10:17 Vital Signs Temperature 98.1 F 11/13/17 09:30 Pulse Rate 88 11/13/17 09:30 Respiratory Rate 18 11/13/17 09:30 Blood Pressure 98/71 11/13/17 09:30 O2 Sat by Pulse Oximetry (%) Laboratory Last Values WBC 7.2 K/mm3 (4.0-10.0) 11/11/17 06:00 RBC 4.53 M/mm3 (3.60-5.2) 11/11/17 06:00 Hgb 14.0 GM/dL (10.7-15.3) 11/11/17 06:00 Hct 41.1 % (32.4-45.2) 11/11/17 06:00 MCV 90.8 fl (80-96) 11/11/17 06:00 MCH 30.8 pg (25.7-33.7) 11/11/17 06:00 MCHC 33.9 g/dl (32.0-36.0) 11/11/17 06:00 RDW 14.0 % (11.6-15.6) 11/11/17 06:00 Plt Count 372 K/MM3 (134-434) 11/11/17 06:00 MPV 8.8 fl (7.5-11.1) 11/11/17 06:00 Sodium 140 mmol/L (136-145) 11/11/17 06:00 Potassium 3.9 mmol/L (3.5-5.1) 11/11/17 06:00 Chloride 109 mmol/L (98-107) H 11/11/17 06:00 Carbon Dioxide 22 mmol/L (21-32) 11/11/17 06:00 Anion Gap 9 (8-16) 11/11/17 06:00 BUN 9 mg/dL (7-18) 11/11/17 06:00 Creatinine 0.7 mg/dL (0.55-1.02) 11/11/17 06:00 Creat Clearance w eGFR > 60 (>60) 11/11/17 06:00 Random Glucose 75 mg/dL (74-106) 11/11/17 06:00 Calcium 8.8 mg/dL (8.5-10.1) 11/11/17 06:00 Total Bilirubin 0.1 mg/dL (0.2-1.0) L 11/11/17 06:00 AST 23 U/L (15-37) 11/11/17 06:00 ALT 35 U/L (12-78) 11/11/17 06:00 Alkaline Phosphatase 79 U/L (45-117) 11/11/17 06:00 Total Protein 7.2 g/dl (6.4-8.2) 11/11/17 06:00 Albumin 3.6 g/dl (3.4-5.0) 11/11/17 06:00 RPR Titer Nonreactive (NONREACTIVE) 11/11/17 06:00 lab noted 11/12/17 10:18 Assessment: 11/12/17 10:17 withdrawal sx 11/12/17 10:18 Plan: continue detox
--- NOTE | 2017-11-13 10:30 | PN ---
BHS Progress Note (SOAP) Subjective: ALERT,IRRITABLE,ANXIOUS,INTERRUPTED SLEEP,PAIN IN THE BODY AND BACK Objective: 11/13/17 10:29 Vital Signs Temperature 98.1 F 11/13/17 09:30 Pulse Rate 88 11/13/17 09:30 Respiratory Rate 18 11/13/17 09:30 Blood Pressure 98/71 11/13/17 09:30 O2 Sat by Pulse Oximetry (%) Assessment: 11/13/17 10:29 WITHDRAWAL SYMPTOM Plan: CONTINUE DETOX
[2017-11-13] MEDS: SERTRALINE HCL 50 MG TABLET (FP) PO SCH (10:42)
[2017-11-13] MEDS: PRENATAL VITAMINS W/ FOLIC ACID TABLET (FP) PO SCH (10:43)
[2017-11-13] MEDS: NICOTINE 14 MG/24 HOURS TOPICAL PATCH TD SCH (10:43)
[2017-11-13] MEDS: diazePAM 5 MG TABLET PO PRN ×2 (10:44→15:38)
[2017-11-13] MEDS: CYCLOBENZAPRINE HCL 5 MG TABLET PO PRN ×2 (10:44→19:28)
[2017-11-13] MEDS: hydrOXYzine PAMOATE 50 MG CAPSULE (FP) PO PRN (19:28)
[2017-11-13] MEDS: QUEtiapine FUMARATE 50 MG TABLET PO SCH (22:14)
[2017-11-13] MEDS: THIAMINE HCL 100 MG TABLET (FP) PO SCH (22:14)
[2017-11-13] MEDS: MELATONIN 5 MG TABLETS PO PRN (22:15)
--- NOTE | 2017-11-14 09:17 | PN ---
S Progress Note (SOAP) Subjective: ALERT,ANXIOUS,IRRITABLE,INTERRUPTED SLEEP, Objective: 11/14/17 09:16 Vital Signs Temperature 97.7 F 11/14/17 06:26 Pulse Rate 74 11/14/17 06:26 Respiratory Rate 16 11/14/17 06:30 Blood Pressure 86/46 11/14/17 06:26 O2 Sat by Pulse Oximetry (%) Assessment: 11/14/17 09:16 WITHDRAWAL SYMPTOM Plan: CONTINUE DETOX,PSYCHIATRIC EVALUATION FOR MEDICATIONS,INSOMNIA,NIGHT MARE
[2017-11-14] MEDS ORDERED: METHADONE HCL 10 MG TABLET (FOR DETOX USE ONLY) PO ONE (10:00)
[2017-11-14] MEDS: PRENATAL VITAMINS W/ FOLIC ACID TABLET (FP) PO SCH (10:09)
[2017-11-14] MEDS: NICOTINE 14 MG/24 HOURS TOPICAL PATCH TD SCH (10:09)
[2017-11-14] MEDS: SERTRALINE HCL 50 MG TABLET (FP) PO SCH (10:09)
[2017-11-14] MEDS: CYCLOBENZAPRINE HCL 5 MG TABLET PO PRN ×2 (10:11→19:45)
[2017-11-14] MEDS: hydrOXYzine PAMOATE 50 MG CAPSULE (FP) PO PRN ×3 (10:13→19:45)
[2017-11-14] MEDS: cloNIDine HCL 0.1 MG TABLET PO SCH ×2 (10:39→22:10)
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
[2017-11-14] MEDS ORDERED: ZOLPIDEM TARTRATE 10 MG TABLET (PARK CARE ONLY) PO PRN (22:00)
[2017-11-14] MEDS: QUEtiapine FUMARATE 50 MG TABLET PO SCH (22:10)
[2017-11-14] MEDS: THIAMINE HCL 100 MG TABLET (FP) PO SCH (22:10)
[2017-11-15] MEDS: hydrOXYzine PAMOATE 50 MG CAPSULE (FP) PO PRN (05:25)
[2017-11-15] MEDS ORDERED: METHADONE HCL 5 MG TABLET (FOR DETOX USE ONLY) PO ONE (06:00)
--- NOTE | 2017-11-15 08:08 | PN ---
S Progress Note (SOAP) Subjective: ALERT,NO COMPLAINT Objective: 11/15/17 08:06 Vital Signs Temperature 97.9 F 11/15/17 07:01 Pulse Rate 70 11/15/17 07:01 Respiratory Rate 16 11/15/17 07:01 Blood Pressure 80/56 11/15/17 07:01 O2 Sat by Pulse Oximetry (%) Assessment: 11/15/17 08:06 DETOX COMPLETED,NO WITHDRAWAL SYMPTOM Plan: DISCHARGE TODAY,FOLLOW UP WITH AFTER CARE PROGRAM ARRANGEMENT
--- NOTE | 2017-11-15 08:13 | DS ---
[facility] Detox Discharge Summary Admission Date: 11/10/17 Discharge Date: 11/15/17 - History Present History: Cannabis Dependence, Opioid Dependence Additional Comments: FOLLOW UP WITH AFTER CARE PROGRAM ARRANGEMENT Pertinent Past History: ASTHMA NICOTINE DEPENDENCE PTSD - Physical Exam Results Vital Signs: Vital Signs Temperature 97.9 F 11/15/17 07:01 Pulse Rate 70 11/15/17 07:01 Respiratory Rate 16 11/15/17 07:01 Blood Pressure 80/56 11/15/17 07:01 O2 Sat by Pulse Oximetry (%) Pertinent Admission Physical Exam Findings: WITHDRAWAL SIGNS AND SYMPTOM Laboratory Last Values WBC 7.2 K/mm3 (4.0-10.0) 11/11/17 06:00 RBC 4.53 M/mm3 (3.60-5.2) 11/11/17 06:00 Hgb 14.0 GM/dL (10.7-15.3) 11/11/17 06:00 Hct 41.1 % (32.4-45.2) 11/11/17 06:00 MCV 90.8 fl (80-96) 11/11/17 06:00 MCH 30.8 pg (25.7-33.7) 11/11/17 06:00 MCHC 33.9 g/dl (32.0-36.0) 11/11/17 06:00 RDW 14.0 % (11.6-15.6) 11/11/17 06:00 Plt Count 372 K/MM3 (134-434) 11/11/17 06:00 MPV 8.8 fl (7.5-11.1) 11/11/17 06:00 Sodium 140 mmol/L (136-145) 11/11/17 06:00 Potassium 3.9 mmol/L (3.5-5.1) 11/11/17 06:00 Chloride 109 mmol/L (98-107) H 11/11/17 06:00 Carbon Dioxide 22 mmol/L (21-32) 11/11/17 06:00 Anion Gap 9 (8-16) 11/11/17 06:00 BUN 9 mg/dL (7-18) 11/11/17 06:00 Creatinine 0.7 mg/dL (0.55-1.02) 11/11/17 06:00 Creat Clearance w eGFR > 60 (>60) 11/11/17 06:00 Random Glucose 75 mg/dL (74-106) 11/11/17 06:00 Calcium 8.8 mg/dL (8.5-10.1) 11/11/17 06:00 Total Bilirubin 0.1 mg/dL (0.2-1.0) L 11/11/17 06:00 AST 23 U/L (15-37) 11/11/17 06:00 ALT 35 U/L (12-78) 11/11/17 06:00 Alkaline Phosphatase 79 U/L (45-117) 11/11/17 06:00 Total Protein 7.2 g/dl (6.4-8.2) 11/11/17 06:00 Albumin 3.6 g/dl (3.4-5.0) 11/11/17 06:00 RPR Titer Nonreactive (NONREACTIVE) 11/11/17 06:00 Vital Signs Temperature 97.9 F 11/15/17 07:01 Pulse Rate 70 11/15/17 07:01 Respiratory Rate 16 11/15/17 07:01 Blood Pressure 80/56 11/15/17 07:01 O2 Sat by Pulse Oximetry (%) - Treatment Hospital Course: Detox Protocol Followed, Detoxed Safely, Responded well, Discharged Condition Good Patient has Accepted a Rehab Referral to: DECLINED - Medication Discharge Medications: Ambulatory Orders Zolpidem Tartrate [Ambien] 10 mg PO HS 08/28/17 Sertraline HCl [Zoloft -] 50 mg PO DAILY #30 tablet 09/01/17 Albuterol Sulfate Inhaler - [Ventolin HFA Inhaler -] 2 inh PO Q4H PRN #1 inh 05/10 - Diagnosis (1) Opioid dependence with withdrawal Current Visit: Yes Status: Acute (2) Nicotine dependence Current Visit: Yes Status: Chronic Qualifiers: Nicotine product type: cigarettes Substance use status: uncomplicated Qualified Code(s): F17.210 - Nicotine dependence, cigarettes, uncomplicated (3) Cannabis dependence Current Visit: Yes Status: Acute (4) Drug-induced mood disorder Current Visit: Yes Status: Acute (5) Insomnia Current Visit: Yes Status: Acute (6) Asthma Current Visit: Yes Status: Chronic Qualifiers: Asthma severity: mild Asthma complication type: uncomplicated (7) Post traumatic stress disorder (PTSD) Current Visit: Yes Status: Chronic - AMA Did Patient Leave Against Medical Advice: No
[2017-11-15] MEDS: SERTRALINE HCL 50 MG TABLET (FP) PO SCH (09:25)
[2017-11-15] MEDS: PRENATAL VITAMINS W/ FOLIC ACID TABLET (FP) PO SCH (09:25)
[2017-11-15] MEDS: cloNIDine HCL 0.1 MG TABLET PO SCH (09:25)
[2017-11-15] MEDS: CYCLOBENZAPRINE HCL 5 MG TABLET PO PRN (09:26)
[2017-11-15 10:17] VITALS: BP 106/62; PULSE 85; TEMP 98.2
== END 2017-11-15 10:06 | disposition home or self-care (01) | DRG 897 ==
LOC: YASAS 12:51 → Y6N 17:49
PROVIDERS: ADMIT Internal Medicine; ATTEND Internal Medicine
PROC: HZ2ZZZZ Detoxification Services for Substance Abuse Treatment (ICD-10-PCS; principal; 2017-11-10)
DX: F11.23 Opioid dependence with withdrawal (principal); F14.20 Cocaine dependence, uncomplicated; F12.20 Cannabis dependence, uncomplicated; F17.210 Nicotine dependence, cigarettes, uncomplicated; F43.10 Post-traumatic stress disorder, unspecified; F19.24 Other psychoactive substance dependence with psychoactive substance-induced mood disorder; G47.00 Insomnia, unspecified; J45.909 Unspecified asthma, uncomplicated
CPT/HCPCS: 36415; 80053; 85027; 86593; 93005; 93010; J0735; Q0162

== ENCOUNTER 2024-05-23 19:33 | Emergency (ER) | payer BC, MEDICARE, OTHER ==
[2024-05-23 19:57] VITALS: BP 131/94; PULSE 112; RESP 20; TEMP 98.9; BMI 35.2
[2024-05-23] MEDS ORDERED: FAMOTIDINE 20 MG/50 ML IVPB 20 MG/50 ML MG IVPB ONE (20:08)
[2024-05-23] MEDS ORDERED: ONDANSETRON 4 MG/2 ML VIAL ONE (20:08)
[2024-05-23] MEDS: SODIUM CHLORIDE 0.9% 500 ML INFUS.BAG IV ONE (20:24)
[2024-05-23] MEDS: FAMOTIDINE 20 MG/50 ML IVPB 20 MG/50 ML MG IVPB ONE (20:25)
[2024-05-23] MEDS: ONDANSETRON 4 MG/2 ML VIAL IVPUSH ONE (20:25)
[2024-05-23] MEDS ORDERED: ACETAMINOPHEN INJECTION 100 ML ONE (20:26)
[2024-05-23 20:27] LABS: BASO % 0.8 % (0-2.0); EOS % 1.9 % (0-4.5); HEMATOCRIT 39.4 % (32.4-45.2); HEMOGLOBIN 13.2 GM/dL (10.7-15.3); LYMPH % 30.6 % (8-40); MCH 28.2 pg (25.7-33.7); MCHC 33.4 g/dl (32.0-36.0); MEAN CELL VOLUME 84.4 fl (80-96); MEAN PLT VOLUME 7.4 fl (7.5-11.1); MONO % 6.7 % (3.8-10.2); PLATELET COUNT 345 10^3/uL (134-434); RBC 4.67 M/mm3 (3.60-5.2); RDW 16.7 % (11.6-15.6); WHITE BLOOD COUNT 16.8 K/mm3 (4.0-10.0)
[2024-05-23] MEDS: ACETAMINOPHEN 1000 MG/100 ML BAG IVPB ONE (20:28)
[2024-05-23 20:33] LABS: INR 0.97 (0.83-1.09); PROTHROMBIN TIME (PATIENT) 11.2 SEC (9.7-13.0)
[2024-05-23 20:36] LABS: ACTIVATED PTT 28.9 SECONDS (25.2-36.5)
[2024-05-23 20:54] LABS: CALCIUM 9.4 mg/dL (8.5-10.1)
[2024-05-23 20:55] LABS: ALBUMIN 3.3 g/dl (3.4-5.0); BLOOD UREA NITROGEN 8.6 mg/dL (7-18)
[2024-05-23 20:58] LABS: CREATININE 0.8 mg/dL (0.55-1.3)
[2024-05-23 21:00] LABS: BILIRUBIN,TOTAL 0.1 mg/dL (0.2-1); TOT PROT 6.9 g/dl (6.4-8.2)
[2024-05-23 22:31] LABS: EPI CELLS 35 /uL (0-25.1); HYALINE CASTS 0 /uL (0-3.1); URINE APPEARANCE TURBID; URINE BACTERIA 854 /uL (0-1359); URINE BILIRUBIN NEGATIVE (NEGATIVE); URINE COLOR YELLOW; URINE GLUCOSE (UA) NEGATIVE (NEGATIVE); URINE KETONE NEGATIVE (NEGATIVE); URINE LEUK ESTERASE TRACE (NEGATIVE); URINE NITRITE NEGATIVE (NEGATIVE); URINE PROTEIN NEGATIVE (NEGATIVE); URINE RBC 8 /uL (0-23.9); URINE UROBILINOGEN 0.2 mg/dL (0.2-1.0); URINE WBC 11 /uL (0-25.8)
== END 2024-05-23 23:10 | disposition left against medical advice (07) ==
LOC: JER 19:33
PROC: 3E033GC Introduction of Other Therapeutic Substance into Peripheral Vein, Percutaneous Approach (ICD-10-PCS; principal; 2024-05-23)
PROC: 3E033GC Introduction of Other Therapeutic Substance into Peripheral Vein, Percutaneous Approach (ICD-10-PCS; 2024-05-23)
PROC: 3E033NZ Introduction of Analgesics, Hypnotics, Sedatives into Peripheral Vein, Percutaneous Approach (ICD-10-PCS; 2024-05-23)
DX: O26.891 Other specified pregnancy related conditions, first trimester (principal); R10.2 Pelvic and perineal pain; O21.9 Vomiting of pregnancy, unspecified; R10.30 Lower abdominal pain, unspecified; Z3A.12 12 weeks gestation of pregnancy; O26.851 Spotting complicating pregnancy, first trimester
CPT/HCPCS: 36415; 76705-TC; 76815; 80053; 81003; 83690; 83735; 84702; 85025; 85610; 85730; 86850; 86900; 86901; 87086; 99284-25; J0131

== ENCOUNTER 2024-07-24 21:45 | Observation (INO) | payer BC ==
[2024-07-24 22:47] LABS: URINE BARBITURATES NEGATIVE (NEGATIVE)
[2024-07-24 22:48] LABS: METHADONE, UR NEGATIVE (NEGATIVE); OPIATES, URI NEGATIVE (NEGATIVE); PHENCYCLIDINE,URINE NEGATIVE (NEGATIVE); URINE AMPHETAMINES NEGATIVE (NEGATIVE); URINE BENZODIAZEPINES NEGATIVE (NEGATIVE)
[2024-07-24 22:50] LABS: COCAINE, UR NEGATIVE (NEGATIVE)
[2024-07-24 22:52] LABS: PH,URINE 5.5 (5.0-8.0); URINE APPEARANCE CLOUDY; URINE BILIRUBIN NEGATIVE (NEGATIVE); URINE COLOR YELLOW; URINE GLUCOSE (UA) NEGATIVE (NEGATIVE); URINE KETONE TRACE (NEGATIVE); URINE LEUK ESTERASE NEGATIVE (NEGATIVE); URINE NITRITE NEGATIVE (NEGATIVE); URINE PROTEIN NEGATIVE (NEGATIVE); URINE UROBILINOGEN 0.2 mg/dL (0.2-1.0)
[2024-07-24] MEDS: LACTATED RINGERS SOLUTION 1,000 ML/1,000 ML INFUS.BAG IV SCH (23:50)
[2024-07-24] MEDS: ONDANSETRON 4 MG/2 ML VIAL IVPB PRN (23:58)
[2024-07-25] MEDS ORDERED: ACETAMINOPHEN INJECTION 100 ML ONE ×2 (00:13→10:14)
[2024-07-25] MEDS: ACETAMINOPHEN 1000 MG/100 ML BAG IVPB ONE ×2 (00:15→10:10)
[2024-07-25 00:40] LABS: BASO % 0.5 % (0-2.0); EOS % 0.9 % (0-4.5); HEMATOCRIT 36.5 % (32.4-45.2); HEMOGLOBIN 12.2 GM/dL (10.7-15.3); LYMPH % 27.4 % (8-40); MCH 29.6 pg (25.7-33.7); MCHC 33.5 g/dl (32.0-36.0); MEAN CELL VOLUME 88.3 fl (80-96); MEAN PLT VOLUME 7.6 fl (7.5-11.1); MONO % 5.5 % (3.8-10.2); NEUT % 65.7 % (42.8-82.8); PLATELET COUNT 376 10^3/uL (134-434); RBC 4.13 M/mm3 (3.60-5.2); RDW 13.9 % (11.6-15.6); WHITE BLOOD COUNT 9.5 K/mm3 (4.0-10.0)
[2024-07-25 00:59] LABS: CALCIUM 9.1 mg/dL (8.5-10.1); POTASSIUM 4.3 mmol/L (3.5-5.1)
[2024-07-25 01:00] LABS: BLOOD UREA NITROGEN 7.7 mg/dL (7-18)
[2024-07-25 01:03] LABS: CREATININE 0.6 mg/dL (0.55-1.3)
[2024-07-25 01:38] LABS: INR 1.04 (0.83-1.09)
[2024-07-25 01:41] LABS: ACTIVATED PTT 31.5 SECONDS (25.2-36.5)
[2024-07-25] MEDS: LACTATED RINGERS SOLUTION 1,000 ML/1,000 ML INFUS.BAG IV SCH (02:00)
[2024-07-25 02:05] LABS: HIV INTERPRETATION NEGATIVE (NEGATIVE)
[2024-07-25 04:46] VITALS: BMI 32.3
[2024-07-25 04:52] VITALS: RESP 18
[2024-07-25 09:14] VITALS: BP 98/59; PULSE 97; TEMP 98.1
== END 2024-07-25 11:05 | disposition home or self-care (01) ==
LOC: JDEL 21:45 → JLDR 07-25 03:45
PROVIDERS: ADMIT Obstetrics & Gynecology; ATTEND Obstetrics & Gynecology
PROC: 3E033NZ Introduction of Analgesics, Hypnotics, Sedatives into Peripheral Vein, Percutaneous Approach (ICD-10-PCS; principal; 2024-07-25)
PROC: 3E0337Z Introduction of Electrolytic and Water Balance Substance into Peripheral Vein, Percutaneous Approach (ICD-10-PCS; 2024-07-25)
PROC: 3E033GC Introduction of Other Therapeutic Substance into Peripheral Vein, Percutaneous Approach (ICD-10-PCS; 2024-07-25)
DX: O26.892 Other specified pregnancy related conditions, second trimester (principal); R10.9 Unspecified abdominal pain; O99.891 Other specified diseases and conditions complicating pregnancy; Z3A.20 20 weeks gestation of pregnancy; O99.322 Drug use complicating pregnancy, second trimester; M54.9 Dorsalgia, unspecified; Z72.0 Tobacco use
CPT/HCPCS: 0241U-QW; 36415; 76815; 80048; 80307; 81003; 85025; 85610; 85730; 86780; 86803; 86850; 86900; 86901; 87086; 87340; 87389; 96361; 96374; 96375; 96376; G0378; J0131